=== PATIENT | female | born 1945 | race Caucasian/White ===

== ENCOUNTER 2019-08-13 07:46 | Outpatient (RCR) | payer MEDICARE, OTHER, SELFPAY | END 2019-08-31 00:01 | LOC: GILAB 07:46 | PROVIDERS: Family Provider Internal Medicine; Visit Provider Family Medicine | DX: D50.9 Iron deficiency anemia, unspecified (principal); K92.2 Gastrointestinal hemorrhage, unspecified | CPT/HCPCS: 96365 ×2; G0463 ×2; J1756 ×2 ==

== ENCOUNTER 2019-09-14 06:29 | Day surgery (SDC) | payer MEDICARE, OTHER, SELFPAY ==
[2019-09-13 15:58] VITALS: BMI 27.9
[2019-09-14 07:07] VITALS: BP 103/50; PULSE 70; RESP 16; TEMP 36.5; O2SAT 95
--- NOTE | 2019-09-14 07:21 | P.HPUD_ITS ---
H&P update H&P Update: DATE OF SURGERY/PROCEDURE: 09/14/19 DATE H&P PERFORMED: H&P UPDATE INFORMATION: H&P completed within last 30 days and No changes to prior documentation PREOP DIAGNOSIS: Anemia associated with blee ding per PLANNED PROCEDURE: Operation Date: 09/14/19 07:30 Proposed Procedures p EGD [id number], K21.9 Z85.038(Not Applicable) - Chencho Kramer MD s Flex Sigmoidoscopy(Not Applicable) - Chencho Kramer MD
--- NOTE | 2019-09-14 07:21 | PM.HPUD ---
H&P update H&P Update: DATE OF SURGERY/PROCEDURE: 09/14/19 DATE H&P PERFORMED: 08/26/19 H&P UPDATE INFORMATION: H&P completed within last 30 days and No changes to prior documentation PREOP DIAGNOSIS: Anemia associated with bleeding per PLANNED PROCEDURE: Operation Date: 09/14/19 07:30 Proposed Procedures p EGD [id number], K21.9 Z85.038(Not Applicable) - Chencho Kramer MD s Flex Sigmoidoscopy(Not Applicable) - Chencho Kramer MD
--- NOTE | 2019-09-14 07:27 | ANES.PREANES ---
Pre-Anesthetic Assessment Pre-Anesthetic Assessment: Height/Weight: Height 1.65 m Weight 76.204 kg Temp Pulse Resp BP Pulse Ox 97.7 F 70 16 103/50 95 09/14/19 07:07 09/14/19 07:07 09/14/19 07:07 09/14/19 07:07 09/14/19 07:07 Preop Diagnosis: Anemia associated with bleeding per Proposed Procedure: Operation Date: 09/14/19 07:30 Proposed Procedures p EGD [id number], K21.9 Z85.038(Not Applicable) - Chencho Kramer MD s Flex Sigmoidoscopy(Not Applicable) - Chencho Kramer MD Was Beta Randy taken within 24 hours: Yes Last intake: Intake Last Liquid Date 09/14/19 Last Liquid Time 04:30 Last Solid Date 09/12/19 Last Solid Time 19:00 Social: Social History: Tobacco Pack years: 55 Comment: quit 2016 Exam: Pre-Anes Outpt Exam: alert, oriented x 3, clear to auscultation bilaterally and regular rate & rhythm Additional Exam Findings (including area of procedure): systolic 3/6 lusb Liban following for moderate Airway: Submandibular: WNL Cervical ROM: WNL MP: 1 Dentition: Full Pulmonary: Pulmonary: COPD Comments: breathing feels good CV/HEM: CV/HEM: HTN Comments: rx'd 15 years : Comments: frequency, leakage GI: Comments: anemia, bleeding per rectum Metabolic: Metabolic: DM Comments: rx'd x 1.5 years, 130-150 Musc/skel: Musc/skel: Lower Back Pain Comments: s/p multiple back sx, bilateral radiculopathies Neuropsych: Neuropsych: Depression Anesthetic Plan: ASA status: III Anesthesia: MAC Data Anesthesia Cardiac Studies: No Data to Display
[2019-09-14 07:35] LABS: Glucose Point of Care 154 mg/dL (70-110)
[2019-09-14] MEDS: sodium chloride 0.9% 1,000 ML 30 ML IV (07:44)
[2019-09-14 08:28] VITALS: BP 116/45; PULSE 67; RESP 18; TEMP 36.1; O2SAT 99
[2019-09-14 09:08] VITALS: BP 115/52; PULSE 68; RESP 18; TEMP 36.3; O2SAT 94
--- NOTE | 2019-09-14 09:45 | SUR.PHASEII ---
PT ASSISTED TO BATHROOM AND BACK TO BED.PT WAS ABLE TO URINATE ONLY.POST OP PLAN RE EXPLAINED TO PT WHO VERBALIZED UNDERSTANDING.
--- NOTE | 2019-09-14 10:01 | SUR.OPER ---
endoscopic tattoo was injected by dr castaneda 1ml at 5 different locations, total injected 5ml. Lot# [id number], exp: 06/23/21
--- NOTE | 2019-09-14 14:43 | ANE.PACU ---
 Inpatient post-anesthesia follow up: Airway intact: Yes Vital signs: Temperature 97.4 F Pulse Rate [Left B rachial] 68 Respiratory Rate 18 Blood Pressure [Ri ght Arm] 115/52 Pulse Oximetry 94 Oxygen Delivery Me thod Room Air Oxygen Flow Rate 2 Fraction of Inspir ed Oxygen Hydration adequate: Yes Nausea and vomiting: No Mental status: Baseline
== END 2019-09-14 10:24 | disposition home or self-care (01) ==
PROVIDERS: Family Provider Internal Medicine; PCP Internal Medicine; Visit Provider Surgery
PROC: 0DJ08ZZ Inspection of Upper Intestinal Tract, Via Natural or Artificial Opening Endoscopic (ICD-10-PCS; CPT 43235; principal; 2019-09-14 07:30)
PROC: 0DJD8ZZ Inspection of Lower Intestinal Tract, Via Natural or Artificial Opening Endoscopic (ICD-10-PCS; CPT 45330; 2019-09-14 07:30)
DX: K62.5 Hemorrhage of anus and rectum (principal); Z85.038 Personal history of other malignant neoplasm of large intestine; Z90.49 Acquired absence of other specified parts of digestive tract; K63.3 Ulcer of intestine; G47.00 Insomnia, unspecified; M81.0 Age-related osteoporosis without current pathological fracture; I10 Essential (primary) hypertension; E11.40 Type 2 diabetes mellitus with diabetic neuropathy, unspecified; Z82.49 Family history of ischemic heart disease and other diseases of the circulatory system; Z87.891 Personal history of nicotine dependence; Z79.891 Long term (current) use of opiate analgesic; Z79.4 Long term (current) use of insulin
CPT/HCPCS: 43235; 45378; 12345; 36416; 82962; 88305; J2250; J2704; J7030

== ENCOUNTER 2019-09-27 10:14 | Outpatient (CLI) | payer MEDICARE, OTHER, SELFPAY ==
--- NOTE | 2019-09-27 11:00 | XRR_ITS ---
PROCEDURE INFORMATION: Exam: XR Abdomen, 1 View Exam date and time: 09/27/2019 10:47 AM Age: 74 years old Clinical indication: Abdominal pain; Generalized; Prior surgery; Surgery date: 1-6 months; Surgery type: Colon surgery jun 2019, abdominal pain ever since; Additional info: History of colon surgery TECHNIQUE: Imaging protocol: XR of the abdomen. Views: Frontal supine view of the abdomen. 1 View. COMPARISON: COMPARISON MORE: CT abdomen pelvis w con* [id number] 08/05/2019 7:54:44 PM FINDINGS: Gastrointestinal tract: There is mildly increased stool noted in the descending and proximal ascending colon. Intraperitoneal space: Right lower quadrant surgical clips. Organs: Left renal 3 mm lateral lower pole caliceal calculus redemonstrated. 3 mm calcification overlying the left renal medial upper pole was previously demonstrated to be a vascular calcification. Bones/joints: Bilateral thoracic and lumbar spinal pedicle screw and zak systems. RIGHT sliding screw hip prosthesis with partially imaged interlocking intramedullary zak. Bipolar left hip replacement. Left L3-L4 disc narrowing with rightward levoscoliosis. XR/XR KUB [id number] IMPRESSION: 1. Mild colonic constipation. 2. Left renal caliceal calculus.
== END 2019-09-27 10:15 | disposition home or self-care (01) ==
LOC: RAD 10:18
PROVIDERS: Family Provider Internal Medicine; PCP Internal Medicine; Visit Provider Surgery
DX: K59.00 Constipation, unspecified (principal); N20.0 Calculus of kidney; R10.9 Unspecified abdominal pain; Z98.890 Other specified postprocedural states
CPT/HCPCS: 74018

== ENCOUNTER 2019-10-14 12:54 | Outpatient (CLI) | payer MEDICARE, OTHER, SELFPAY ==
--- NOTE | 2019-10-14 13:30 | USCV_ITS ---
Pratima Beckford Age: 74 Gender: F : 1945 Exam Date: 10/14/2019 13:30 Ordering Phys: Gigi Louie MD ([email or web address]) Technologist: Kellen Oliveros Exam Location: [facility] [place] Indication: aortic stenosis BP: 109 / 42 HR: 75 Rhythm: Sinus Technical Quality: Adequate MEASUREMENTS (Male / Female) Normal Values 2D ECHO LV Diastolic Diameter PLAX 5.1 cm 4.2 - 5.9 / 3.9 - 5.3 cm LV Systolic Diameter PLAX 2.9 cm IVS Diastolic Thickness 1.5 cm 0.6 - 1.0 / 0.6 - 0.9 cm IVS Systolic Thickness 1.7 cm LVPW Diastolic Thickness 0.6 cm 0.6 - 1.0 / 0.6 - 0.9 cm LVPW Systolic Thickness 1.8 cm LVOT Diameter 2.0 cm LV Ejection Fraction 2D Teich 75.3 % LV Ejection Fraction MOD 2C 66.6 % LV Ejection Fraction 2C AL 66.2 % LA Diameter 3.8 cm LA Width 4.1 cm LA Height 5.8 cm RA Width 3.1 cm RA Height 4.7 cm M-MODE LV Diastolic Diameter MM 6.0 cm 4.2 - 5.9 / 3.9 - 5.3 cm LV Systolic Diameter MM 4.1 cm LV Ejection Fraction MM Teich 60.2 % IVS Diastolic Thickness MM 0.9 cm 0.6 - 1.0 / 0.6 - 0.9 cm IVS Systolic Thickness MM 1.8 cm LVPW Diastolic Thickness MM 1.3 cm 0.6 - 1.0 / 0.6 - 0.9 cm LVPW Systolic Thickness MM 2.0 cm Aortic Annulus Diameter 3.0 cm LA Ao Ratio MM 1.3 MV E Point Septal Separation 1.0 cm DOPPLER AV Peak Velocity 525.0 cm/s LVOT Peak Velocity 84.0 cm/s AV Area Cont Eq vti 0.5 cm squared AV Area Cont Eq pk 0.5 cm squared MV Peak Velocity 152.0 cm/s MV Area PHT 3.3 cm squared Mitral E to A Ratio 0.7 MV E' Velocity 4.0 cm/s Mitral E to MV E' Ratio 26.5 Mitral E to LV E' Lateral Ratio 27.2 Mitral E to LV E' Septal Ratio 26.5 TR Peak Velocity 74.0 cm/s TR Peak Gradient 2.2 mmHg Right Atrial Pressure 3.0 mmHg Pulmonary Artery Systolic Pressu 5.2 mmHg PV Peak Velocity 88.0 cm/s RV Acceleration Time 0.1 s FINDINGS Left Ventricle Normal left ventricular cavity size. Mild left ventricular hypertrophy. Normal left ventricular systolic function. No regional wall motion abnormalities. Grade I/IV diastolic dysfunction (abnormal relaxation filling pattern), normal to mildly elevated filling pressures. Left ventricular ejection fraction is estimated at 60 %. Right Ventricle Normal right ventricular size and systolic function. Normal right ventricular systolic pressure. Right Atrium The right atrium is normal in size. Left Atrium Mildly increased left atrial size. Mitral Valve Mild mitral annular calcification. Mild mitral valve regurgitation. Aortic Valve Structurally normal trileaflet aortic valve. Severe aortic valve calcification. Severe aortic valve stenosis, mean gradient 61 mmHg, MORTEZA 0.49 cm squared. Tricuspid Valve Structurally normal tricuspid valve. Trace tricuspid valve regurgitation. Pulmonic Valve Pulmonic valve not well visualized. Pericardium Normal pericardium without effusion. Aorta Normal ascending aorta dimension. CONCLUSIONS Normal left ventricular cavity size. Mild left ventricular hypertrophy. Normal left ventricular systolic function. No regional wall motion abnormalities. Grade I/IV diastolic dysfunction (abnormal relaxation filling pattern), normal to mildly elevated filling pressures. Left ventricular ejection fraction is estimated at 60 %. Mildly increased left atrial size. Mild mitral annular calcification. Mild mitral valve regurgitation. Structurally normal trileaflet aortic valve. Severe aortic valve calcification. Severe aortic valve stenosis, mean gradient 61 mmHg, MORTEZA 0.49 cm squared. Previous study was done 2 months ago but under less than optimal circumstances due to the patient's illness at that time. This study was done to confirm or deny the severity of the aortic valve stenosis. This study confirms the previous study. Previously the mean gradient was 55 mmHg with a valve area of 0.[address] Gigi Louie MD (Electronically Signed) Final Date: 14 October 2019 17:07 S
== END 2019-10-14 12:55 | disposition home or self-care (01) ==
LOC: US 12:55
PROVIDERS: Family Provider Internal Medicine; PCP Internal Medicine; Visit Provider Internal Medicine Cardiovascular Disease
DX: I35.0 Nonrheumatic aortic (valve) stenosis (principal); I34.0 Nonrheumatic mitral (valve) insufficiency; I70.0 Atherosclerosis of aorta
CPT/HCPCS: 93306

== ENCOUNTER 2019-10-17 09:42 | Emergency (ER) | payer MEDICARE, OTHER, SELFPAY ==
[2019-10-17 09:43] VITALS: BP 115/56; PULSE 88; RESP 20; TEMP 37; O2SAT 96; BMI 24.3
--- NOTE | 2019-10-17 09:49 | ED_ITS ---
Entered by Ariana Austin, acting as scribe for HPI - SOB/Dyspnea General: Chief Complaint: Shortness of Breath/Dyspnea Stated Complaint: SOB Time Seen by Provider: 10/17/19 09:47 Source: EMS Mode of arrival: EMS Limitations: no limitations History of Present Illness: HPI Narrative: 74 yo female presents with increased shortness of breath. pt states this started a few days ago. pt states she has had a cough that was dry then turned to productive. pt states she is not on home O2. pt denies any other symptoms at this time. MD elicited complaint: shortness of breath and cough Pertinent past history: COPD Onset (ago): day(s) (2-3 days ago) Timing: constant and progressively worsening Severity: mild Exacerbating factors: coughing and deep breaths Relieving factors: nothing Known history of: COPD Associated symptoms: Reports cough; Deny abdominal pain, chest pain, fever(s), nausea or vomiting Treatment prior to arrival: oxygen (by EMS) Related Data: Home oxygen amount: none Review of Systems General: Reports: 10 or more systems reviewed and unremarkable except in HPI and below Const: Denies: fever, chills, body aches or change in appetite Eyes: Denies: blurry vision or eye discomfort ENMT: Denies: throat pain or dental pain Card: Denies: chest pain Resp: Reports: shortness of breath and productive cough GI: Denies: abdominal pain, nausea, vomiting or diarrhea : Denies: painful urination Musc: Denies: neck pain or back pain Skin/Breast: Denies: rash Neuro: Denies: headache Psych: Denies: depression Sudeep/Lymph: Denies: easy bruising All/Imm: Denies: hives PFSH ED PFSH: Social History Smoking and tobacco status: former smoker Second hand smoke exposure: No Alcohol intake: never Adopted: No Caregiver/support person: Yes Lives independently: No Household members: none Housing: Assisted Living Facility Marital status: / Highest education level completed: High School Graduate service: No Current occupational status: disabled Current occupational exposures/hazards: No Pets and animals: No History of recent travel: No Sexually active: No Current gender identity: Female Unique/Hindu: Shinto Special unique needs: No Agree to transfusion: No Financial difficulty paying for basics: Decline to Answer Physical Exam Const: COMMON NORMALS: no apparent distress, oriented x3 and healthy appearing HENMT: COMMON NORMALS: normocephalic and head/scalp atraumatic HEAD & SCALP: normocephalic and atraumatic Eye: COMMON NORMALS: PERRL and EOMs intact bilaterally PUPIL: Yes PERRL Neck/C-Spine: COMMON NORMALS: full ROM and supple Chest: COMMONS NORMALS: inspection of chest normal and palpation of chest normal Resp: COMMON NORMALS: normal respiratory effort EFFORT & INSPECTION: Yes tachypneic AUSCULTATION: wheezes Cardio: COMMON NORMALS: regular rate, regular rhythm and no murmurs RATE: regular rate RHYTHM: regular rhythm GI: COMMON NORMALS: normal to inspection, nondistended, normoactive bowel sounds, soft to palpation, non-tender and no masses PALPATION: Yes soft Extremity: COMMON NORMALS: normal to inspection and full ROM Neuro: COMMON NORMALS: oriented x3, moves all extremities and no focal motor deficits Psych: COMMON NORMALS: mental status grossly normal, thought process normal and cooperative THOUGHT PROCESS: normal thought process Skin: COMMON NORMALS: no rashes or lesions noted and no wounds GENERAL SKIN EXAM: no rashes or lesions noted Course Vital Signs: Vital signs: Vital Signs Temperature 98.6 F 10/17/19 09:43 Pulse Rate 89 10/17/19 11:16 Respiratory Rate 16 10/17/19 11:16 Blood Pressure 110/48 10/17/19 11:16 Pulse Oximetry 94 10/17/19 11:16 MDM - SOB/Dyspnea MDM Narrative: Medical decision making narrative: Patient presents here with bronchitis. Patient is much improved here after breathing treatments and she is requesting to go home. She is not requiring any oxygen here and has no signs of cardiac cause or pulmonary embolism. Patient's x-ray shows no large pneumonias. We will start her on steroids along with albuterol and Keflex. Patient is to follow-up with her primary care doctor in 3 to 5 days return if worsening. Lab Data: Labs: Lab Results 10/17/19 10/17/19 10/17/19 Range/Units 09:58 10:10 10:10 WBC 3.3 L (4.0-10.0) 10^3/ uL RBC 4.19 (4.1-5.3) 10^6/u L Hgb 10.6 L (11.5-15.3) g/dL Hct 35.6 L (37.0-47.0) % MCV 85.0 (81-99) fL MCH 25.3 L (28.0-34.0) pg MCHC 29.8 L (30.0-36.0) g/dL RDW 16.6 H (12.1-15.1) % Plt Count 210 (130-400) 10^3/c mm MPV 11.0 H (7.4-10.4) fL Neut % (Auto) 69.8 % Lymph % (Auto) 17.2 % [place] % (Auto) 11.8 % Eos % (Auto) 0.6 % Baso % (Auto) 0.3 % Neut # (Auto) 2.3 (1.8-7.7) 10^3/u L Lymph # (Auto) 0.6 L (0.8-4.8) 10^3/u L [place] # (Auto) 0.4 (0.2-0.9) 10^3/u L Eos # (Auto) 0.0 (0.0-0.8) 10^3/u L Baso # (Auto) 0.0 (0.0-0.1) 10^3/u L Nucleated RBC % (a uto) 0 % Nucleated RBCs # 0.0 /100WBC Sodium 138 (136-145) mmol/L Potassium 3.8 (3.5-5.1) mmol/L Chloride 101 (98-107) mmol/L Carbon Dioxide 25 (22-29) mmol/L Anion Gap 15.8 (5-19) BUN 16 (8-23) mg/dL Creatinine 0.7 (0.5-0.9) mg/dL Glucose 156 H (65-115) mg/dL Lactate (0.5-2.2) mmol/L Calcium 9.1 (8.5-10.5) mg/dL Total Bilirubin 0.3 (0.15-1.2) mg/dL AST 17 (0-32) U/L ALT 10 (0-33) U/L Alkaline Phosphata se 96 (35-105) IU/L NT-Pro-B Natriuret Pep 2117 H (0-125) pg/mL Total Protein 6.9 (6.6-8.7) g/dL Albumin 3.7 (3.5-5.2) g/dL Globulin 3.2 (1.3-4.6) g/dL Influenza Type A A g Negative (Negative) POC Influenza B Ag Negative (Negative) 10/17/19 Range/Units 10:10 WBC (4.0-10.0) 10^3/ uL RBC (4.1-5.3) 10^6/u L Hgb (11.5-15.3) g/dL Hct (37.0-47.0) % MCV (81-99) fL MCH (28.0-34.0) pg MCHC (30.0-36.0) g/dL RDW (12.1-15.1) % Plt Count (130-400) 10^3/c mm MPV (7.4-10.4) fL Neut % (Auto) % Lymph % (Auto) % [place] % (Auto) % Eos % (Auto) % Baso % (Auto) % Neut # (Auto) (1.8-7.7) 10^3/u L Lymph # (Auto) (0.8-4.8) 10^3/u L [place] # (Auto) (0.2-0.9) 10^3/u L Eos # (Auto) (0.0-0.8) 10^3/u L Baso # (Auto) (0.0-0.1) 10^3/u L Nucleated RBC % (a uto) % Nucleated RBCs # /100WBC Sodium (136-145) mmol/L Potassium (3.5-5.1) mmol/L Chloride (98-107) mmol/L Carbon Dioxide (22-29) mmol/L Anion Gap (5-19) BUN (8-23) mg/dL Creatinine (0.5-0.9) mg/dL Glucose (65-115) mg/dL Lactate 0.9 (0.5-2.2) mmol/L Calcium (8.5-10.5) mg/dL Total Bilirubin (0.15-1.2) mg/dL AST (0-32) U/L ALT (0-33) U/L Alkaline Phosphata se (35-105) IU/L NT-Pro-B Natriuret Pep (0-125) pg/mL Total Protein (6.6-8.7) g/dL Albumin (3.5-5.2) g/dL Globulin (1.3-4.6) g/dL Influenza Type A A g (Negative) POC Influenza B Ag (Negative) Imaging Data^: CXR: Radiologist's impression: Ordering Provider/Ordering MD: Phoenix Valladares MD Date of Service: 10/17/19 Procedure(s): XR chest 1V portable [id number] Accession Number(s): [id number] Report Number: [id number] WS: [id number] XR chest 1V portable [id number] REASON FOR EXAM: cough FINDINGS: Mcconnell bars are seen extending from the mid thoracic area inferiorly. The heart was not enlarged there is arteriosclerotic changes. There is thickening of the peribronchial markings bilaterally suggesting possible bronchitis. No pneumonia, pleural effusion, pulmonary edema, or mass effect. XR/XR chest 1V portable [id number] IMPRESSION: Findings suggesting acute bronchitis. EKG Data^: EKG 1: Attestation: I personally reviewed and interpreted this EKG as follows: EKG Interpretation Date: 10/17/19 EKG interpretation time: 10:10 Interpretation: nsr hr [address] or t wave abnormalities qrs 98 qtc 438 Discharge Plan Discharge Patient Disposition: Home, Self-Care Clinical Impression: Bronchitis Condition: Stable Prescriptions: New Keflex 500 mg capsule 500 mg PO Q6H 7 Days Qty: 28 RF: 0 prednisone 50 mg tablet 50 mg PO DAILY Qty: 5 RF: 0 albuterol sulfate 90 mcg/actuation HFA aerosol inhaler 2 inh INHALATION Q6H PRN (Reason: shortness of breath) Qty: 8 RF: 0 No Action albuterol sulfate 90 mcg/actuation HFA aerosol inhaler 2 puff INHALATION Q6H PRNRF: 0 pantoprazole 40 mg tablet,delayed release (DR/EC) 40 mg PO QDAY RF: 0 Farxiga 5 mg tablet 5 mg PO QAM RF: 0 glipizide 5 mg tablet 2.5 mg PO QDAY RF: 0 tamsulosin [Flomax] 0.4 mg capsule 0.4 mg PO QDAY RF: 0 Basaglar KwikPen U-100 Insulin 100 unit/mL (3 mL) insulin pen 18 unit SUBCUT .HS RF: 0 Crestor 20 mg 20 mg PO DAILY RF: 0 multivitamin 1 tab PO DAILY RF: 0 citalopram 20 mg tablet 20 mg PO DAILY RF: 0 Zofran 4 mg Tablet 4 mg PO Q6H PRN (Reason: Nausea) RF: 0 bisacodyl 5 mg Tablet 5 mg PO DAILY RF: 0 oxycodone 5 mg tablet 5 mg PO 6XD PRN (Reason: pain) RF: 0 cyclobenzaprine 5 mg tablet 5 mg PO DAILY RF: 0 Stiolto Respimat 2.5-2.5 mcg/actuation mist 1 inh INHALATION DAILY RF: 0 potassium chloride 20 mEq tablet,ER particles/crystals 20 meq PO DAILY RF: 0 Senna-S 8.6 mg 8.6 mg PO DAILY RF: 0 furosemide 20 mg tablet 20 mg PO DAILY RF: 0 Novolog Flexpen U-100 Insulin 100 unit/mL (3 mL) insulin pen 100 unit SUBCUT QID RF: 0 metoprolol tartrate 25 mg tablet 25 mg PO BID RF: 0 Lantus U-100 Insulin liquid 6 unit SUBCUT TID RF: 0 Discharge Orders: Discharge Order (Routine); Ordered 10/17/19 Ordered By: Phoenix Valladares Referrals: Ziyad Esparza DO [Primary Care Provider] - 4-7 days Discharge Diet: Advance as tolerated Discharge Activity: Resume usual activity Patient Instructions: Acute Bronchitis (ED) Coding Level of Care Code ED Coal Trammer for [facility] Fwd Exam Comprehensive The documentation recorded by the Norman jensen Bridget Annette, accurately reflects the service I personally performed and the decisions made by Blaine austin Korby, MD Oct 17, 2019 09:42
--- NOTE | 2019-10-17 09:53 | XR_ITS ---
WS: [id number] XR chest 1V portable [id number] REASON FOR EXAM: cough FINDINGS: Mcconnell bars are seen extending from the mid thoracic area inferiorly. The heart was not enlarged there is arteriosclerotic changes. There is thickening of the peribronchial markings bilaterally suggesting possible bronchitis. No pneu monia, pleural effusion, pulmonary edema, or mass effect. XR/XR chest 1V portable [id number] IMPRESSION: Findings suggesting acute bronchitis.
--- NOTE | 2019-10-17 09:53 | ECG_ITS ---
Measurements Intervals Rawlings Rate: 84 P: 59 AR: 171 QRS: 33 QRSD: 98 T: 120 QT: 397 QTc: 470 SINUS RHYTHM WITH OCCASIONAL SUPRAVENTRICULAR PREMATURE COMPLEXES ST DEVIATION AND MODERATE T-WAVE ABNORMALITY, CONSIDER LATERAL ISCHEMIA [-0.1+ mV mV T WAVE IN I/aVL/V5/V6] Left ventricular hypertrophy Compared to ECG 08/08/2019 13:13:18 T-wave abnormality now present Possible ischemia now present ST (T wave) deviation no longer present Electronically Signed On 10-18-2019 11:15:09 ELECTRICAL INSTALLATION INSPECTOR by Gigi Louie M.D. [email or web address]
[2019-10-17 09:59] VITALS: RESP 18; O2SAT 92
[2019-10-17 10:15] VITALS: PULSE 82; RESP 91; O2SAT 16
[2019-10-17 10:21] VITALS: PULSE 79; RESP 16; O2SAT 93
[2019-10-17 10:24] LABS: Basophils % 0.3 %; Eosinophils % 0.6 %; Hematocrit 35.6 % (37.0-47.0); Hemoglobin 10.6 g/dL (11.5-15.3); Lymphocytes # 0.6 10^3/uL (0.8-4.8); Lymphocytes % 17.2 %; Mean Corpuscular HGB Conc 29.8 g/dL (30.0-36.0); Mean Corpuscular Hemoglobin 25.3 pg (28.0-34.0); Monocytes # 0.4 10^3/uL (0.2-0.9); Monocytes % 11.8 %; Neutrophils # 2.3 10^3/uL (1.8-7.7); Neutrophils % 69.8 %; Nucleated Red Blood Cells % 0 %; Platelet Count 210 10^3/cmm (130-400); Red Blood Count 4.19 10^6/uL (4.1-5.3); Red Cell Distribution Width 16.6 % (12.1-15.1); White Blood Count 3.3 10^3/uL (4.0-10.0)
[2019-10-17 10:41] LABS: Lactate (Lactic Acid level) 0.9 mmol/L (0.5-2.2)
[2019-10-17 10:45] LABS: Influenza A by IFA Negative (Negative); Influenza B by IFA Negative (Negative)
[2019-10-17 10:50] LABS: Alanine Aminotransferase 10 U/L (0-33); Albumin Level 3.7 g/dL (3.5-5.2); Alkaline Phosphatase 96 IU/L (35-105); Anion Gap 15.8 (5-19); Aspartate Amino Transferase 17 U/L (0-32); Blood Urea Nitrogen 16 mg/dL (8-23); Calcium 9.1 mg/dL (8.5-10.5); Carbon Dioxide 25 mmol/L (22-29); Chloride 101 mmol/L (98-107); Globulin 3.2 g/dL (1.3-4.6); Glucose 156 mg/dL (65-115); NT Pro B Type Natriuretic Pept 2117 pg/mL (0-125); Potassium 3.8 mmol/L (3.5-5.1); Sodium 138 mmol/L (136-145); Total Bilirubin 0.3 mg/dL (0.15-1.2); Total Protein 6.9 g/dL (6.6-8.7)
[2019-10-17 11:16] VITALS: BP 110/48; PULSE 89; RESP 16; O2SAT 94
[2019-10-17 11:44] VITALS: BP 110/48; PULSE 85; RESP 17; O2SAT 96
== END 2019-10-17 12:21 | disposition home or self-care (01) ==
PROVIDERS: Emergency Provider Emergency Medicine; Family Provider Internal Medicine; PCP Internal Medicine
DX: J44.9 Chronic obstructive pulmonary disease, unspecified (principal); Z87.891 Personal history of nicotine dependence
CPT/HCPCS: 36415; 71045; 80053; 83605; 83880; 85025; 87804; 93005; 94640; 99283; 99284; J7611

== ENCOUNTER 2019-11-10 08:02 | Observation (INO) | payer MEDICARE, OTHER, SELFPAY ==
[2019-11-10] VITALS (43 sets, daily range): BP systolic 93–154; BP diastolic 46–89; PULSE 73–87; RESP 10–27; TEMP 36.6; O2SAT 93–94; BMI 27.6
--- NOTE | 2019-11-10 06:26 | XACV_ITS ---
Ht: 163 cm Wt: 73 kg BSA: 1.83 m2 Gender: Female : 1945 Any Known Allergies: Other Exam Priority: Routine Procedure(s): Procedure Description: Diagnostic procedure Procedure Description: Coronary Angiography Diagnostic Cath Status: Elective Diagnostic Findings Patient has severe aortic stenosis. Angiography is being performed to assess the coronary arteries in anticipation of a TAVR. Patient has a right dominant system. The coronary arteries are completely normal. Anticoagulation: Heparin Pressures Phase:Rest AO : 101 mmHg / 54 mmHg ( 73 mmHg ) @ 2:48:00 AM 96 mmHg / 54 mmHg ( 71 mmHg ) @ 2:49:00 AM Clinical Evaluation EBL: 5mL-10mL Procedural Details Procedure Consent Obtained. Pre-Procedure Time Out. Identified patient by full name and date of as verbalized by the patient/guarantor. Does the consent match the physician's order: Yes. Accurate & Complete Informed Consent: Yes. Inpatient/Outpatient History & Physical on Chart: Yes. If H&P is completed, is and addenduem needed: N/A; If yes, is the addendum complete: N/A. Visualize and Verify Site with Patient/Guarantor: N/A. Relevant Radiology Images available: Yes. Pre-op teaching completed and patient verbalized understanding. The risks, benefits, and alternatives of sedation and/or procedure were discussed by physician. The patient agrees to continue. Procedure started. Correct patient, site and procedure confirmed by cath team. PERRLA. Strong, equal hand marina dry dock manager bilaterally. Lungs clear x 5 lobes. IV Site on Arrival: 22 gauge in the right hand. IV Fluids: 0.9% NaCl at KVO. 0 mL infused prior to lab pack chemist. Pre Procedural Pulses: bilateral dorsalis pedis was 2+. Pre Procedural Pulses: bilateral posterior tibial was 2+. Pre Procedural Pulses: bilateral radial was 3+. Oxygen started at 2liters/min via nasal canula. right groin was prepped with chloroprep then draped in the usual sterile fashion. right radial was prepped with chloroprep then draped in the usual sterile fashion. Physician notified. Baseline sample Acquired. HR: 79 BPM. Equipment: 6F - Radial. Physician arrived. Cardiac Cath Pack. ACIST Manifold Kit Model BT 2000. Heparinized Saline (2 units/mL), 1000 mL bag. Physician scrubbed in. Immediate Pre-Procedure Time Out. Correct Patient: Yes; Correct Procedure: Yes; Correct Site: Yes; Correct Patient Position: Yes; Correct Supplies: Yes; Dried Flammable Prep: Yes; Blood Products Available: No;. Lidocaine 1% infiltrated to the right radial. Arterial access obtained. A 6 faroese TIG catheter in over wire. Multiple views taken of left coronary artery. Catheter redirected to the RCA. Multiple views taken of right coronary artery. Catheter out. A TR Band was successful obtaining hemostatsis at the Right Radial artery insertion site. TR band placed. Hemostasis obtained. PERRLA. Strong, equal hand marina dry dock manager bilaterally. No VTE prophylaxis required. Fluoro: 2:06. Contrast type used: Omnipaque 300 mgI/mL, 500 mL bottle. [id number]. Post-op diagnosis: aortic stenosis. Complications: none. Estimated blood loss: 5mL-10mL. Procedure completed. Patient transferred by wheelchair to CPRU. [facility] Clinical Fraility Score: 4: Vulnerable. Clinical Data Assistant Indications: Valvular Disease. Chest Pain Symptom Assessment: Atypical Angina. Cardiovascular Instability: No. Vital chart was stopped. Medication's Wasted: Other = fenanyl 50 mcg. Medication's Wasted: Lidocaine 1% = 18 mL. Medication's Wasted: Nitro = 49.8 mg. Medication's Wasted: Heparin = 1000 units. Total IV fluids: 50 mL. Site: Right Radial artery Sheath Size: 6 Fr Hemostasis Method: TR Band Hemostasis Success: Successful Procedure Medications Start: 7:34 AM Stop: 7:34 AM Medication: Versed Amount: 1 mg Route: I.V. Start: 7:35 AM Stop: 7:35 AM Medication: Fentanyl Amount: 25 mcg Route: I.V. Start: 7:39 AM Stop: 7:39 AM Medication: Versed Amount: 1 mg Route: I.V. Start: 7:41 AM Stop: 7:41 AM Medication: Verapamil Amount: 5 mg Route: I.A. Start: 7:41 AM Stop: 7:41 AM Medication: Nitrogylcerin Amount: 200 mcg Route: I.A. Start: 7:45 AM Stop: 7:45 AM Medication: Heparin Amount: 5000 units Route: I.V. Start: 7:47 AM Stop: 7:47 AM Medication: Fentanyl Amount: 25 mcg Route: I.V. I, the attending physician, have reviewed and verified all procedure medications. Yes, all medications given per verbal order History/Risk Factors Hypertension: Yes Dyslipidemia: Yes Diabetic Therapy: Oral Peripheral Arterial Disease (PAD): No Myocardial Infarction (UT): No Obesity: Yes Renal Disease: No Tobacco Use: Former Prior Interventions PCI: No CABG: No Valve Surgery: No Report Signatures Finalized by:Dr. Gigi Louie MD on 11/10/2019 8:06:25 AM
--- NOTE | 2019-11-10 06:30 | SUR.PREOP ---
PRE OP NOTE Patient states that she was under the impression her heart valve was being replaced today. Informed that the planned procedure today was a heart cath. Patient states that was not what she was told by Dr Louie. I informed her that Dr Louie would come clarify today prior to doing any procedure. She stated that would be fine. Prepped per usual fashion.
[2019-11-10] MEDS: diphenhydrAMINE 50 mg Capsule PO (07:01)
--- NOTE | 2019-11-10 07:05 | SUR.PREOP ---
MD Discussion Dr Louie in to discuss/clarify today's procedure. After discussion patient opted to continue. No c/o voiced at this time.
--- NOTE | 2019-11-10 08:41 | PC.NURSE ---
received from cardiac dental lab technician at 0815.report received.pt is alert and awake.denies pain.sr on monitor.right wrist with tr band on and inflated.no hematoma noted.palpable radial pulse noted distal to tr band.instructed in activity restrictions s/p radial artery procedure..and instructed to notify staff for any bleeding,pain,numbness..or for any concerns at all.pt verb understanding of instructions
--- NOTE | 2019-11-10 10:32 | PC.CHAP ---
Pastoral Care Encounter/Spiritual Assessment Type of Contact [] Declined perioperative assistant visit [] Patient/Family/Request visit [] Outpatient visit [] Follow-up visit [] Physician referral [] Code/Alert [x] Routine visit [] Staff referral [] Actively dying [] Patient sleeping [] Family support [] [] Out of room [] Palliative care [] [] Receiving care in room [] Pre-surgical visit [] Trauma [] Long length of stay [] ICU visit [] Other: Relational/Emotional Strength [] Patient feels connected with others/family/visitors/staff [] Distress [] Loneliness/isolation [] Abandonment Spirituality of Patient [] Person of Unique [] Attends Quaker of their Unique [x] Believes in Prayer [] Reads Bible or Restoration materials [] There are Spiritual issues to be addressed Fabrication Specialist Interventions [x] Prayer [] Active listening [] Non-anxious presence [] Spiritual/emotional support [] Crisis/trauma care [] Spiritual counseling [] Bereavement support [] Provided bereavement packet [] Provided Bible/devotional materials [] Provided toy/stuffed animal, coloring book to patient or family member [] Provided Communion [] Anointing/[place] [] Salvation [x] Completed spiritual assessment [] Other: Impact on Illness or Injury [] Angry [] Fearful [] Anxious [] Often cries [] Exhaustion [] Unable to work [] Unable to attend mormon [] Unable to walk/stand [] Unable to read [] Unable to drive [] Unable to eat/drink [] Unable to sleep [] Unable to be with family [] Patient intubated [] Other: Summary Patient here for testing. Time spent with patient 10 min
--- NOTE | 2019-11-10 14:17 | PC.NURSE ---
tr band slowly deflated and removed at 1300.no bleeding or hematoma noted.palpable radial pulse noted.right hand is warm to toucha nad with brisk capillary refill.site dressed with 2x2 guaze and secured with bioclusive drsg
== END 2019-11-10 14:30 | disposition home or self-care (01) ==
LOC: CSU 10:18 → CCL 10:19 → OPCSU 10:20 → CSU 10:25
PROVIDERS: Admitting Provider Internal Medicine Cardiovascular Disease; Family Provider Internal Medicine; PCP Internal Medicine; Visit Provider Internal Medicine Cardiovascular Disease
DX: I35.0 Nonrheumatic aortic (valve) stenosis (principal)
CPT/HCPCS: 36415; 93454; C1769; C1887; C1894; G0378; J1644; J2001; J2250; J3010; J3490; J7030; Q0163; Q9967

== ENCOUNTER 2019-12-13 07:02 | Inpatient (IN) | payer MEDICARE, OTHER, SELFPAY ==
[2019-12-13] VITALS (16 sets, daily range): BP systolic 101–169; BP diastolic 51–92; PULSE 77–130; RESP 16–25; TEMP 36.6–37; O2SAT 96–100; BMI 25.8
--- NOTE | 2019-12-13 07:05 | ED_ITS ---
HPI - SOB/Dyspnea General: Chief Complaint: Shortness of Breath/Dyspnea Stated Complaint: difficulty breathing Time Seen by Provider: 12/13/19 07:05 History of Present Illness: HPI Narrative: 74-year-old female with a known history of severe COPD as well as congestive heart failure and valvular heart disease diabetes mellitus. She is brought in from a local halfway in respiratory distress her sats are 100% on arrival on couple liters oxygen by nasal cannula there is no report of fever she has had a nonproductive cough. She is awake and alert and able to answer questions she denies myalgias or flulike symptoms. The halfway she is and has been on visitor restrictions for some time now and has not had any reported COVID 19 cases. She denies any chest pain. MD elicited complaint: shortness of breath and cough (Nonproductive) Pertinent past history: COPD, congestive heart failure and diabetes Onset (ago): hour(s) Timing: constant Severity: severe Exacerbating factors: movement and coughing Relieving factors: oxygen and rest Known history of: COPD and congestive heart failure Associated symptoms: Reports no associated symptoms and orthopnea; Deny abdominal pain, chest pain, fever(s), nausea or vomiting Treatment prior to arrival: oxygen Review of Systems Const: Denies: fever, chills, body aches, change in appetite, fatigue or malaise ENMT: Denies: throat pain, ear pain, nasal discharge or nasal congestion Card: Reports: shortness of breath on exertion and shortness of breath when lying down; Denies: chest pain or edema Resp: Reports: shortness of breath and non-productive cough; Denies: productive cough GI: Denies: abdominal pain, nausea, vomiting, vomiting blood, coffee grounds in vomit, diarrhea, constipation, bloating, blood in stool or black tarry stool : Denies: flank pain, difficulty urinating, painful urination, urinary frequency or urinary urgency Skin/Breast: Denies: rash or itching PFSH ED PFSH: Medical History (Updated 12/13/19 @ 13:14 by Eleazar Duenas MD) Adenocarcinoma COLON Anemia Aortic stenosis Arthritis Carcinoma of sigmoid colon Centrilobular emphysema DDD (degenerative disc disease) Diabetes Dyslipidemia Fracture of femur Fracture of fibula (~09/2019) HTN (hypertension) Tobacco abuse, in remission Surgical History History of colon resection History of colonoscopy with polypectomy Family History Denies family history of Anesthesia complication Bleeding disorder Social History Smoking and tobacco status: never smoked Second hand smoke exposure: No Alcohol intake: never Adopted: No Caregiver/support person: Yes Lives independently: No Household members: none Housing: Assisted Living Facility Marital status: / Highest education level completed: High School Graduate service: No Current occupational status: disabled Current occupational exposures/hazards: No Pets and animals: No History of recent travel: No Sexually active: No Current gender identity: Female Unique/Christian: [employer] Special unique needs: No Agree to transfusion: No Financial difficulty paying for basics: Decline to Answer Physical Exam Const: COMMON NORMALS: no apparent distress GENERAL APPEARANCE: cooperative and comfortable ORIENTATION/CONSCIOUSNESS: Yes awake, Yes oriented to person, Yes oriented to place and Yes oriented to time HENMT: COMMON NORMALS: normocephalic, head/scalp atraumatic, hearing grossly normal bilaterally, external ears normal, EAC's normal, TM's normal bilaterally, nasal mucous membranes and turbinates normal, moist oral mucous membranes and oropharynx normal HEAD & SCALP: normocephalic and atraumatic NOSE: nasal mucous membranes and turbinates normal EXTERNAL EAR: Yes external ears normal EXTERNAL AUDITORY CANAL: EAC's normal TYMPANIC MEMBRANE: TM's normal bilaterally Eye: COMMON NORMALS: PERRL, EOMs intact bilaterally, conjunctivae normal and no scleral icterus CONJUNCTIVA: Yes conjunctivae normal PUPIL: Yes PERRL Neck/C-Spine: COMMON NORMALS: full ROM, no lymphadenopathy and supple Lymph: LYMPHATIC: no lymphadenopathy noted and no lymphedema noted Resp: EFFORT & INSPECTION: Yes respiratory distress, Yes labored and Yes uses accessory muscles AUSCULTATION: rhonchi and wheezes Cardio: RATE: tachycardic HEART SOUNDS: murmur systolic Location: right sternal border Intensity: V/ Timing: late GI: COMMON NORMALS: soft to palpation and no hepatosplenomegaly AUSC ULTATION: Yes normoactive bowel sounds PALPATION: Yes soft, No tender, No guarding and Yes no hepatosplenomegaly Extremity: COMMON NORMALS: normal to inspection, normal capillary refill, no clubbing, cyanosis or edema, no calf tenderness and no pedal edema Neuro: SENSORIUM/ORIENTATION: Yes oriented to person, Yes oriented to place and Yes oriented to time Skin: COMMON NORMALS: no rashes or lesions noted GENERAL SKIN EXAM: no rashes or lesions noted Course Vital Signs: Vital signs: Vital Signs Temperature 98.2 F 12/14/19 12:00 Pulse Rate 85 12/14/19 12:00 Respiratory Rate 19 H 12/14/19 12:00 Blood Pressure 109/55 12/14/19 12:00 Pulse Oximetry 100 12/14/19 12:00 MDM - SOB/Dyspnea MDM Narrative: Medical decision making narrative: Patient in acute hypercapnic respiratory failure. We will start her on BiPAP. She has been isolated in the halfway there are no cases of COVID-19 in the halfway. She can safely be BiPAP and nebulized. Will discuss with Dr. Duenas with plan to admit. Lab Data: Labs: Lab Results 12/13/19 12/13/19 12/13/19 Range/Units 07:00 07:14 07:15 WBC 10.7 H (4.0-10.0) 10^3/ uL RBC 4.25 (4.1-5.3) 10^6/u L Hgb 9.6 L (11.5-15.3) g/dL Hct 35.6 L (37.0-47.0) % MCV 83.8 (81-99) fL MCH 22.6 L (28.0-34.0) pg MCHC 27.0 L (30.0-36.0) g/dL RDW 16.5 H (12.1-15.1) % Plt Count 445 H (130-400) 10^3/c mm MPV 11.7 H (7.4-10.4) fL Neut % (Auto) 54.8 % Lymph % (Auto) 30.6 % [place] % (Auto) 10.7 % Eos % (Auto) 2.8 % Baso % (Auto) 0.8 % Neut # (Auto) 5.9 (1.8-7.7) 10^3/u L Lymph # (Auto) 3.3 (0.8-4.8) 10^3/u L [place] # (Auto) 1.2 H (0.2-0.9) 10^3/u L Eos # (Auto) 0.3 (0.0-0.8) 10^3/u L Baso # (Auto) 0.1 (0.0-0.1) 10^3/u L Nucleated RBC % (a uto) 0 % Nucleated RBCs # 0.0 /100WBC D-Dimer (0-0.59) ug/mIFE U Specimen Type Arterial Sample Site Radial, left ABG pH 7.21 L (7.35-7.45) ABG pCO2 72.8 H* (35-45) mmHg ABG pO2 81.6 (80.0-100.0) mmH g ABG HCO3 29.3 H (22-26) mmol/L ABG O2 Saturation 92.1 ABG Base Excess 0.6 (-2.0-2.0) mmol/ L Ron Test Pos A-a O2 Gradient (5-10) mmHg Hematocrit 28.4 L (37-47) % Hgb O2 Saturation 90.8 L (95-100) % Carboxyhemoglobin 0.9 (0.4-20.1) %THgb Methemoglobin 0.6 (0.4-1.5) % Total Hemoglobin 9.3 L (12-16) g/dL Sodium 142.0 (131-143) mmol/L Potassium 4.1 (3.5-5.0) mmol/L Glucose 245.0 H (70-115) mg/dL Ionized Calcium 1.2 (1.1-1.4) mmol/L O2 Delivery Device Nc O2 Liters/Min 5.0 % FiO2 % [place] [id number] Chloride (98-107) mmol/L Carbon Dioxide (22-29) mmol/L Anion Gap (5-19) BUN (8-23) mg/dL Creatinine (0.5-0.9) mg/dL Calculated Osmolal ity (285-295) mOsm/k g Lactic Acid (0.5-2.2) mmol/L Calcium (8.5-10.5) mg/dL Ferritin (15-150) ng/mL Total Bilirubin (0.15-1.2) mg/dL AST (0-32) U/L ALT (0-33) U/L Alkaline Phosphata se (35-105) IU/L Lactate Dehydrogen ase (135-214) U/L Troponin T Baselin e (0-10) ng/mL C-Reactive Protein (0.0-4.9) mg/L NT-Pro-B Natriuret Pep (0-125) pg/mL Total Protein (6.6-8.7) g/dL Albumin (3.5-5.2) g/dL Globulin (1.3-4.6) g/dL Influenza Type A A g Negative (Negative) Influenza Type B A g Negative (Negative) 12/13/19 12/13/19 12/13/19 Range/Units 07:15 07:15 07:15 WBC (4.0-10.0) 10^3/ uL RBC (4.1-5.3) 10^6/u L Hgb (11.5-15.3) g/dL Hct (37.0-47.0) % MCV (81-99) fL MCH (28.0-34.0) pg MCHC (30.0-36.0) g/dL RDW (12.1-15.1) % Plt Count (130-400) 10^3/c mm MPV (7.4-10.4) fL Neut % (Auto) % Lymph % (Auto) % [place] % (Auto) % Eos % (Auto) % Baso % (Auto) % Neut # (Auto) (1.8-7.7) 10^3/u L Lymph # (Auto) (0.8-4.8) 10^3/u L Dodge # (Auto) (0.2-0.9) 10^3/u L Eos # (Auto) (0.0-0.8) 10^3/u L Baso # (Auto) (0.0-0.1) 10^3/u L Nucleated RBC % (a uto) % Nucleated RBCs # /100WBC D-Dimer 0.76 H (0-0.59) ug/mIFE U Specimen Type Sample Site ABG pH (7.35-7.45) ABG pCO2 (35-45) mmHg ABG pO2 (80.0-100.0) mmH g ABG HCO3 (22-26) mmol/L ABG O2 Saturation ABG Base Excess (-2.0-2.0) mmol/ L Ron Test A-a O2 Gradient (5-10) mmHg Hematocrit (37-47) % Hgb O2 Saturation (95-100) % Carboxyhemoglobin (0.4-20.1) %THgb Methemoglobin (0.4-1.5) % Total Hemoglobin (12-16) g/dL Sodium 140 (131-143) mmol/L Potassium 5.0 (3.5-5.0) mmol/L Glucose 225 H (70-115) mg/dL Ionized Calcium (1.1-1.4) mmol/L O2 Delivery Device O2 Liters/Min % FiO2 % Dehydrating Press Operator ID Chloride 99 (98-107) mmol/L Carbon Dioxide 29 (22-29) mmol/L Anion Gap 17.0 (5-19) BUN 15 (8-23) mg/dL Creatinine 0.8 (0.5-0.9) mg/dL Calculated Osmolal ity 293 (285-295) mOsm/k g Lactic Acid 1.8 (0.5-2.2) mmol/L Calcium 9.8 (8.5-10.5) mg/dL Ferritin 8 L (15-150) ng/mL Total Bilirubin 0.2 (0.15-1.2) mg/dL AST 18 (0-32) U/L ALT 21 (0-33) U/L Alkaline Phosphata se 121 H (35-105) IU/L Lactate Dehydrogen ase 201 (135-214) U/L Troponin T Baselin e (0-10) ng/mL C-Reactive Protein 8.8 H (0.0-4.9) mg/L NT-Pro-B Natriuret Pep 1471 H (0-125) pg/mL Total Protein 7.5 (6.6-8.7) g/dL Albumin 4.6 (3.5-5.2) g/dL Globulin 2.9 (1.3-4.6) g/dL Influenza Type A A g (Negative) Influenza Type B A g (Negative) 12/13/19 12/13/19 Range/Units 07:15 08:18 WBC (4.0-10.0) 10^3/ uL RBC (4.1-5.3) 10^6/u L Hgb (11.5-15.3) g/dL Hct (37.0-47.0) % MCV (81-99) fL MCH (28.0-34.0) pg MCHC (30.0-36.0) g/dL RDW (12.1-15.1) % Plt Count (130-400) 10^3/c mm MPV (7.4-10.4) fL Neut % (Auto) % Lymph % (Auto) % Dodge % (Auto) % Eos % (Auto) % Baso % (Auto) % Neut # (Auto) (1.8-7.7) 10^3/u L Lymph # (Auto) (0.8-4.8) 10^3/u L [place] # (Auto) (0.2-0.9) 10^3/u L Eos # (Auto) (0.0-0.8) 10^3/u L Baso # (Auto) (0.0-0.1) 10^3/u L Nucleated RBC % (a uto) % Nucleated RBCs # /100WBC D-Dimer (0-0.59) ug/mIFE U Specimen Type Arterial Sample Site Radial, left ABG pH 7.37 (7.35-7.45) ABG pCO2 50.3 H (35-45) mmHg ABG pO2 75.4 L (80.0-100.0) mmH g ABG HCO3 29.0 H (22-26) mmol/L ABG O2 Saturation 95.5 ABG Base Excess 3.1 H (-2.0-2.0) mmol/ L Ron Test Pos A-a O2 Gradient 75.3 H (5-10) mmHg Hematocrit 26.3 L (37-47) % Hgb O2 Saturation 93.3 L (95-100) % Carboxyhemoglobin 1.1 (0.4-20.1) %THgb Methemoglobin 1.3 (0.4-1.5) % Total Hemoglobin 8.6 L (12-16) g/dL Sodium 142.0 (131-143) mmol/L Potassium 4.0 (3.5-5.0) mmol/L Glucose 205.0 H (70-115) mg/dL Ionized Calcium 1.2 (1.1-1.4) mmol/L O2 Delivery Device Bipap O2 Liters/Min % FiO2 30.0 % Dehydrating Press Operator ID cak Chloride (98-107) mmol/L Carbon Dioxide (22-29) mmol/L Anion Gap (5-19) BUN (8-23) mg/dL Creatinine (0.5-0.9) mg/dL Calculated Osmolal ity (285-295) mOsm/k g Lactic Acid (0.5-2.2) mmol/L Calcium (8.5-10.5) mg/dL Ferritin (15-150) ng/mL Total Bilirubin (0.15-1.2) mg/dL AST (0-32) U/L ALT (0-33) U/L Alkaline Phosphata se (35-105) IU/L Lactate Dehydrogen ase (135-214) U/L Troponin T Baselin e 20 H (0-10) ng/mL C-Reactive Protein (0.0-4.9) mg/L NT-Pro-B Natriuret Pep (0-125) pg/mL Total Protein (6.6-8.7) g/dL Albumin (3.5-5.2) g/dL Globulin (1.3-4.6) g/dL Influenza Type A A g (Negative) Influenza Type B A g (Negative) Discharge Plan Discharge Patient Disposition: Admitted As Inpatient Admit Provider: Eleazar Duenas Referrals: Ziyad Esparza DO [Primary Care Provider] - Discharge Date/Time: 12/13/19 10:35 Coding Level of Care Code ED Horseback Riding Instructor for Chg Fwd Exam Comprehensive
--- NOTE | 2019-12-13 07:06 | ECG_ITS ---
Measurements Intervals [place] Rate: 129 P: 67 NH: 170 QRS: 53 QRSD: 101 T: 38 QT: 326 QTc: 478 SINUS TACHYCARDIA LEFT VENTRICULAR HYPERTROPHY AND ST-T CHANGE [VOLTAGE CRITERIA PLUS ST/T ABN ABNORMALITY] INTERPRETATION BASED ON A DEFAULT AGE OF 40 YEARS Compared to ECG 10/17/2019 10:10:10 ST (T wave) deviation now present Sinus rhythm no longer present T-wave abnormality no longer present Possible ischemia no longer present Electronically Signed On 12-13-2019 15:35:21 CDT by Gigi Louie M.D. [email or web address]
--- NOTE | 2019-12-13 07:06 | XR_ITS ---
WS: [id number] PORTABLE CHEST HISTORY: dyspnea/cough COMPARISON: 10/17/2019 Hyperinflated lungs with diffuse coarsened interstitial thickening. Mild progression since the prior study. Suspect fluid overload and interstitial edema. Mild pleural thickening on the RIGHT. Cardiac size: Normal. Mediastinum/Aorta: Mild atherosclerosis aorta. Severe osteopenia. Prior fusion hardware at the thoracolumbar region. Distal LEFT clavicle is poorly seen. May be due to osteopenia. XR/XR chest 1V portable [id number] IMPRESSION: 1. Interval development of mild interstitial edema. 2. Chronic emphysema.
[2019-12-13 07:11] LABS: ABG PCO2 72.8 mmHg (35-45); ABG PH Result 7.21 (7.35-7.45); Arterial Blood Gas Hematocrit 28.4 % (37-47); Base Excess ABG 0.6 mmol/L (-2.0-2.0); Blood Gas Allen Test Pos; Blood Gas Sample Site Radial, left; Blood Gas Sample Type Arterial; Carboxyhemoglobin 0.9 %THgb (0.4-20.1); HCO3 ABG 29.3 mmol/L (22-26); HGB O2 Sat 90.8 % (95-100); Ionized Calcium Level - ABG 1.2 mmol/L (1.1-1.4); Methemoglobin 0.6 % (0.4-1.5); Oxygen Device NC; Oxygen Saturation ABG 92.1; PO2 ABG 81.6 mmHg (80.0-100.0); Potassium Level - ABG 4.1 mmol/L (3.5-5.0); Total Hemoglobin 9.3 g/dL (12-16)
--- NOTE | 2019-12-13 07:19 | PC.NURSE ---
portable xray at bedside
[2019-12-13 07:24] LABS: Basophils # 0.1 10^3/uL (0.0-0.1); Basophils % 0.8 %; Eosinophils # 0.3 10^3/uL (0.0-0.8); Eosinophils % 2.8 %; Hematocrit 35.6 % (37.0-47.0); Hemoglobin 9.6 g/dL (11.5-15.3); Lymphocytes # 3.3 10^3/uL (0.8-4.8); Lymphocytes % 30.6 %; Mean Corpuscular Hemoglobin 22.6 pg (28.0-34.0); Mean Corpuscular Volume 83.8 fL (81-99); Mean Platelet Volume 11.7 fL (7.4-10.4); Monocytes # 1.2 10^3/uL (0.2-0.9); Monocytes % 10.7 %; Neutrophils # 5.9 10^3/uL (1.8-7.7); Neutrophils % 54.8 %; Nucleated Red Blood Cells % 0 %; Platelet Count 445 10^3/cmm (130-400); Red Blood Count 4.25 10^6/uL (4.1-5.3); Red Cell Distribution Width 16.5 % (12.1-15.1); White Blood Count 10.7 10^3/uL (4.0-10.0)
[2019-12-13 07:56] LABS: Lactic Sepsis W/Reflex 1.8 mmol/L (0.5-2.2)
[2019-12-13 07:58] LABS: Troponin(5th) Baseline 20 ng/mL (0-10)
[2019-12-13 08:01] LABS: D Dimer 0.76 ug/mIFEU (0-0.59)
[2019-12-13 08:07] LABS: Alanine Aminotransferase 21 U/L (0-33); Albumin Level 4.6 g/dL (3.5-5.2); Alkaline Phosphatase 121 IU/L (35-105); Aspartate Amino Transferase 18 U/L (0-32); Blood Urea Nitrogen 15 mg/dL (8-23); C Reactive Protein 8.8 mg/L (0.0-4.9); Calcium 9.8 mg/dL (8.5-10.5); Carbon Dioxide 29 mmol/L (22-29); Chloride 99 mmol/L (98-107); Ferritin 8 ng/mL (15-150); Globulin 2.9 g/dL (1.3-4.6); Glucose 225 mg/dL (65-115); Lactate Dehydrogenase 201 U/L (135-214); NT Pro B Type Natriuretic Pept 1471 pg/mL (0-125); Osmolality Calculated 293 mOsm/kg (285-295); Sodium 140 mmol/L (136-145); Total Bilirubin 0.2 mg/dL (0.15-1.2); Total Protein 7.5 g/dL (6.6-8.7)
[2019-12-13 08:13] LABS: Influenza A by IFA Negative (Negative); Influenza B by IFA Negative (Negative)
[2019-12-13] MEDS: ipratropium-albuterol 3 mL Neb INHALATION (08:13)
[2019-12-13 08:29] LABS: ABG PCO2 50.3 mmHg (35-45); ABG PH Result 7.37 (7.35-7.45); Alveolar-Arterial Oxygen Gradi 75.3 mmHg (5-10); Arterial Blood Gas Hematocrit 26.3 % (37-47); Base Excess ABG 3.1 mmol/L (-2.0-2.0); Blood Gas Allen Test Pos; Blood Gas Sample Site Radial, left; Blood Gas Sample Type Arterial; Carboxyhemoglobin 1.1 %THgb (0.4-20.1); HGB O2 Sat 93.3 % (95-100); Ionized Calcium Level - ABG 1.2 mmol/L (1.1-1.4); Methemoglobin 1.3 % (0.4-1.5); Oxygen Device BIPAP; Oxygen Saturation ABG 95.5; PO2 ABG 75.4 mmHg (80.0-100.0); Total Hemoglobin 8.6 g/dL (12-16)
[2019-12-13] MEDS: FUROsemide 10 mg/mL SDV 2mL 20 MG IVP (08:39)
--- NOTE | 2019-12-13 09:06 | ECG_ITS ---
Measurements Intervals [place] Rate: 99 P: 72 MD: 166 QRS: 37 QRSD: 98 T: 67 QT: 375 QTc: 482 SINUS RHYTHM LEFT VENTRICULAR HYPERTROPHY AND ST-T CHANGE [VOLTAGE CRITERIA PLUS ST/T AB ABNORMALITY] Compared to ECG 10/17/2019 10:10:10 ST (T wave) deviation now present T-wave abnormality no longer present Possible ischemia no longer present Electronically Signed On 12-13-2019 15:36:03 CDT by Gigi Louie M.D. [email or web address]
[2019-12-13 10:10] LABS: Troponin 5 2HR 48.47 ng/mL (0-10)
[2019-12-13 10:12] LABS: Troponin 5 2HR Delta 28.47 ABS# (0-10)
--- NOTE | 2019-12-13 10:15 | PC.NURSE ---
pt tested for COVID 19-lakhani virus. Pt remains on droplet precautions at this time
--- NOTE | 2019-12-13 13:05 | P.HP_ITS ---
Providers/Chief Complaint Admitting Physician: Eleazar Duenas MD Primary Care Provider: Ziyad Esparza DO Chief Complaint: HYPERCAPNIC RESP FAILURE, CHF History of Present Illness Pratima Beckford is a 74 year old female with past medical history of COPD, emphysema on 3 L oxygen supplementation, type 2 diabetes mellitus on chronic insulin, severe aortic stenosis getting work-up for TAVR to be done at [facility], normal coronaries as per the angiogram done in October 2019, recent history of adenocarcinoma of transverse colon post resection followed by recent colonoscopy which revealed adenomatous polyp in transverse colon, chronic anemia, hypertension, dyslipidemia who presented to the ER today complaining of shortness of breath. Patient states she was doing absolutely fine last night when when she went to sleep. Today morning when she woke up she was not having any symptoms but on coming back from the bathroom she started complaining of palpitations which was followed by shortness of breath. Shortness of breath was acute getting worse on lying down on exertion. Patient denies of having any fevers, nausea, vomiting, flulike symptoms, runny nose, abdominal pain, diarrhea, melena or hematemesis. Shortness of breath associated with mild wheezing. Her symptoms were not associated with syncope. She also is complaining of mild bilateral lower limb swelling. She denies of having any chest pain on rest or exertion. In the ER patient was found to be in hypercapnic respiratory failure so was started on BiPAP ventilation after which she improved. Her blood work showed mild leukocytosis, anemia, elevated proBNP. Review of Systems Const: Denies: fever, chills, body aches, change in appetite, malaise, night sweats, diaphoresis, change in sleep pattern, daytime sleepiness or snoring Eyes: Denies: change in vision, blurry vision, photophobia, eye discomfort or eye discharge ENMT: Denies: throat pain, enlarged tonsils, hoarseness, mouth pain, oral sores/lesions, dry mouth, tinnitus, nasal congestion or post nasal drip Card: Reports: palpitations, swelling of feet/ankles and shortness of breath when lying down; Denies: chest pain, irregular heart rhythm, edema, lightheadedness, syncope, pre-syncope, shortness of breath on exertion, leg pain with exertion or bluish discoloration of hands/feet Resp: Reports: shortness of breath, non-productive cough and wheezing; Denies: productive cough, stridor, pain on inspiration, change in phlegm color, coughing up blood or chest congestion GI: Denies: abdominal pain, nausea, vomiting, vomiting blood, coffee grounds in vomit, difficulty swallowing, heartburn/indigestion, diarrhea, constipation, bloating, cramping, change in bowel habits, painful bowel movements, blood in stool or black tarry stool : Denies: flank pain, painful urination, urinary frequency, urinary urgency, urinary hesitancy, nighttime urination or blood in urine Musc: Denies: neck pain, back pain, extremity pain, joint pain, joint swelling, redness, joint stiffness or limited range of motion Neuro: Denies: headache, numbness in extremities, weakness in extremities, changes in sensation, lack of coordination, difficulty walking, frequent falls, dizziness, vertigo, confusion, slurred speech, difficulty communicating thoughts or seizure-like activity Psych: Denies: anxiety, depression, mood swings, panic attacks, hopelessness or irritability Endo: Denies: excessive urination, excessive thirst, tired all the time, cold intolerance, excessive sweating, flushing or heat intolerance Sudeep/Lymph: Denies: easy bruising or easy bleeding All/Imm: Denies: tongue swelling, facial swelling or acute wheezing Medications/Allergies Home Medications Medication Instructions Recorded Confirmed Last Taken Type Lactobacillus rhamnosus GG 1 cap PO DAILY PRN 12/13/19 12/13/19 Unknown History [Culturelle] acetaminophen [Tylenol] 650 mg PO Q6H PRN 12/13/19 12/13/19 Unknown History bisacodyl 10 mg MA DAILY PRN 12/13/19 12/13/19 Unknown History diphenhydramine HCl [Benadryl] 25 mg PO Q6H PRN 12/13/19 12/13/19 Unknown History insulin aspart U-100 [Novolog 6 unit SUBCUT TID 12/13/19 12/13/19 Unknown History Flexpen U-100 Insulin] magnesium hydroxide [Milk of 30 ml PO DAILY PRN 12/13/19 12/13/19 Unknown History Magnesia] sodium phosphates [Fleet Enema] 118 ml MA DAILY PRN 12/13/19 12/13/19 Unknown History Allergies Allergy/AdvReac Type Severity Reaction Status Date / Time chlorzoxazone Allergy ALGY-Rash Verified 11/10/19 07:21 dexamethasone Allergy ADR-Halluci Verified 11/10/19 07:21 nating hexachlorophene Allergy ADR-Gastrointestinal Verified 11/10/19 07:21 Upset metformin Allergy ADR-Abdominal Verified 11/10/19 07:21 Pain pregabalin [From Lyrica] Allergy ADR-Swelling Verified 11/10/19 07:21 of the Eye PFSH Acute PFSH: Medical History Anemia Aortic stenosis Carcinoma of sigmoid colon Centrilobular emphysema Diabetes Dyslipidemia HTN (hypertension) Tobacco abuse, in remission Surgical History History of colon resection History of colonoscopy with polypectomy Family History Denies family history of Anesthesia complication Bleeding disorder Social History Smoking and tobacco status: never smoked Second hand smoke exposure: No Alcohol intake: never Adopted: No Caregiver/support person: Yes Lives independently: No Household members: none Housing: Assisted Living Facility Marital status: / Highest education level completed: High School Graduate service: No Current occupational status: disabled Current occupational exposures/hazards: No Pets and animals: No History of recent travel: No Sexually active: No Current gender identity: Female Unique/Alevism: Voodoo Special unique needs: No Agree to transfusion: No Financial difficulty paying for basics: Decline to Answer Vitals/I&O/Wt Last Vital Signs Temp 98.6 F 12/13/19 11:00 Pulse 88 12/13/19 11:26 Resp 18 12/13/19 11:00 BP 132/57 12/13/19 11:00 Pulse Ox 98 12/13/19 11:26 Weight last 48 hrs Weight 77.111 kg Physical Exam Narrative: EXAM NARRATIVE: General: No acute distress, AO x3 HEENT: PERRLA, pupils bilaterally equal and reactive Chest: Normal vesicular breath sounds, bilateral fine crackles present in lower zones, rhonchi present bilaterally up to middle chest, equal good air entry bilaterally CVS: S1-S2 regular, ejection systolic murmur present in the aortic area, 2/6, tachycardia, no gallops, no rubs Abdomen: Soft, nontender, no organomegaly, bowel sounds present Neuro: No focal deficits, no facial deformity, AO x3, power 5/5 in all limbs Data : 12/13/19 07:15 12/13/19 07:15 Micro: Microbiology 12/13/19 07:40 Blood Culture - Preliminary Blood SPECIMEN COLLECTED 12/13/19 07:15 Blood Culture - Preliminary Blood SPECIMEN COLLECTED A&P Assessment and plan (1) Hypercapnic respiratory failure: Status: Acute (2) Aortic stenosis: Status: Acute (3) Diastolic heart failure: Status: Acute (4) Centrilobular emphysema: Status: Acute (5) Anemia: Status: Acute (6) HTN (hypertension): Status: Acute (7) Diabetes: Status: Acute (8) Dyslipidemia: Status: Acute Additional A&P Information Hypercapnic respiratory failure: A combination of exacerbation of COPD and acute decompensation of diastolic heart failure. Most recent echo in October 2019 showed an EF of 60% with grade 1 diastolic heart failure with severe aortic stenosis when calculated mean aortic valve area was 0.49 cm? and mean gradient was 61 mmHg across the valve. proBNP elevated. Patient was given 20 mg of IV Lasix in the ER. We will hold off on further diuresis for today and assess again later in the day. Strict input output charting. Daily weights. Head and elevation to 40 degrees. Exacerbation of COPD: Patient was given Solu-Medrol in the ER. Start patient on prednisone 40 mg daily for 5 days. We will start patient on Advair and Spiriva along with budesonide twice daily. Continue oxygen supplementation keeping saturation over 90%. Patient would need home O2 evaluation before discharge. Confirmed with the senior care, patient would require COVID 19 testing before discharge. BiPAP ventilation as needed and nightly. Check procalcitonin. No occult consolidation present on the chest x-ray, very mild leukocytosis without any left shift. We will hold off on IV antibiotics for now. Anemia: With history of adenocarcinoma of colon. Baseline hemoglobin seems to be in high tens. Right now 9.6. Check iron panel, stool for occult blood. Most recent colonoscopy earlier this year showed tubular adenoma but was done on suboptimal colon prep. If stool for occult blood is positive will consult surgery for further evaluation. Continue 40 mg of Protonix daily. Severe aortic stenosis: Definitely playing into the symptoms. Continue Lopressor 25 mg twice daily to maintain her heart rate. If heart rate continues to remain in 90s will increase the dose of Lopressor. Type 2 diabetes mellitus: Continue home dose of glargine 18 units nightly, NovoLog 6 units subcu 3 times daily along with moderate insulin sliding scale. Check HbA1c. Hypertension: Blood pressure well maintained for now. We will continue to monitor blood pressure as with severe aortic stenosis can lead her to having heart failure-like symptoms. For now continue home dose of Lopressor as discussed above. Continue chronic medications like citalopram. We will change medications as per the clinical course. Full code. Carb consistent low-salt diet. Heparin for DVT prophylaxis. Attestations Medical Necessity Statement*: Hypercapnic respiratory failure, COPD exacerbation, severe aortic stenosis, anemia Admission for more than 2 midnights Time Spent in Patient Care: Greater than 35 minutes Coding Level of Care Code Acute Safety Lead for [facility] Diagnoses Hypercapnic respiratory failure J96.92 Aortic stenosis I35.0 Diastolic heart failure I50.30 Centrilobular emphysema J43.2 Anemia D64.9 HTN (hypertension) I10 Diabetes E11.9 Dyslipidemia E78.5
[2019-12-13 14:16] LABS: Troponin 5 6HR 41.88 ng/mL (0-10)
[2019-12-13 14:22] LABS: Troponin 5 6HR Delta 21.88 ng/L (0-12)
[2019-12-13 14:24] LABS: Procalcitonin 0.17 ng/mL (0-0.5); Thyroid Stimulating Hormone 0.75 uIU/mL (0.27-4.20)
[2019-12-13 14:35] LABS: Iron 12 ug/dL (37-145); Magnesium 2.1 mg/dL (1.7-2.3); Percent Saturation 3.7 % (20-50); Total Iron Binding Capacity 324 mcg/dl; Unsaturated Iron Binding 312 ug/dL (112-347)
[2019-12-13] MEDS: heparin 5,000 unit/mL INJ 1 mL 5000 UNIT SUBCUT ×2 (14:45→20:32)
[2019-12-13] MEDS: oxyCODONE 5 mg IR Tab/Cap PO ×2 (14:46→20:33)
[2019-12-13 15:06] LABS: Urine Appearance Clear (CLEAR); Urine Color Yellow (Yellow)
[2019-12-13 15:07] LABS: Add Urine Culture? No; Bilirubin Urine Neg (NEGATIVE); Blood Urine Neg (Negative); Glucose Urine UA 4+ (Normal); Ketones Urine Negative (Negative); Leukocyte Esterase Urine Negative (Negative); Nitrate Urine Negative (Negative); Protein Urine Neg (Negative); Specific Gravity, Urine 1.005 (1.005-1.030); Squamous Epithelial Cell Urine 0-4 (0-5); Urobilinogen Urine Norm (Negative); pH Urine 7 (5-7)
--- NOTE | 2019-12-13 16:31 | PC.SOCIAL ---
IM initialed explained and copy provided to patient. She understands she is not being dc'd today. She had no questions.
[2019-12-13 17:01] LABS: Glucose Point of Care 173 mg/dL (70-110)
[2019-12-13 17:29] LABS: Bacteria Urine TRACE
[2019-12-13] MEDS: metoprolol tartrate 25 mg Tablet PO (17:45)
[2019-12-13 20:20] LABS: Glucose Point of Care 195 mg/dL (70-110)
[2019-12-13] MEDS: atorvastatin 40 mg Tablet 80 MG PO (20:33)
[2019-12-14] VITALS (18 sets, daily range): BP systolic 98–125; BP diastolic 49–71; PULSE 71–86; RESP 15–24; TEMP 36.4–36.9; O2SAT 96–100
[2019-12-14] MEDS: oxyCODONE 5 mg IR Tab/Cap PO ×3 (03:08→14:31)
[2019-12-14 04:09] LABS: Basophils % 0.2 %; Hematocrit 29.4 % (37.0-47.0); Lymphocytes # 1.2 10^3/uL (0.8-4.8); Lymphocytes % 12.5 %; Mean Corpuscular HGB Conc 27.2 g/dL (30.0-36.0); Mean Corpuscular Hemoglobin 22.7 pg (28.0-34.0); Mean Corpuscular Volume 83.3 fL (81-99); Monocytes # 0.7 10^3/uL (0.2-0.9); Monocytes % 7.7 %; Neutrophils # 7.4 10^3/uL (1.8-7.7); Neutrophils % 79.4 %; Nucleated Red Blood Cells % 0 %; Platelet Count 327 10^3/cmm (130-400); Red Blood Count 3.53 10^6/uL (4.1-5.3); Red Cell Distribution Width 16.5 % (12.1-15.1); White Blood Count 9.3 10^3/uL (4.0-10.0)
[2019-12-14 04:30] LABS: Alanine Aminotransferase 14 U/L (0-33); Albumin Level 3.9 g/dL (3.5-5.2); Alkaline Phosphatase 89 IU/L (35-105); Anion Gap 14.1 (5-19); Aspartate Amino Transferase 12 U/L (0-32); Blood Urea Nitrogen 20 mg/dL (8-23); Calcium 9.5 mg/dL (8.5-10.5); Carbon Dioxide 29 mmol/L (22-29); Chloride 101 mmol/L (98-107); Globulin 2.7 g/dL (1.3-4.6); Glucose 135 mg/dL (65-115); Osmolality Calculated 289 mOsm/kg (285-295); Potassium 4.1 mmol/L (3.5-5.1); Sodium 140 mmol/L (136-145); Total Bilirubin 0.3 mg/dL (0.15-1.2); Total Protein 6.6 g/dL (6.6-8.7)
[2019-12-14] MEDS: heparin 5,000 unit/mL INJ 1 mL 5000 UNIT SUBCUT ×2 (04:54→13:20)
[2019-12-14] MEDS: metoprolol tartrate 25 mg Tablet PO ×2 (07:42→17:43)
[2019-12-14] MEDS: tamsulosin 0.4 mg Capsule PO (07:43)
[2019-12-14] MEDS: iron polysaccharide complex 150 mg Capsule PO ×2 (07:43→17:43)
[2019-12-14] MEDS: citalopram 20 mg Tablet PO (07:43)
[2019-12-14] MEDS: pantoprazole 40 mg SDV IVP ×2 (08:24→21:35)
[2019-12-14 13:37] LABS: Glucose Point of Care 156 mg/dL (70-110)
--- NOTE | 2019-12-14 13:46 | PM.PN ---
Subjective Subjective: Interval history: No acute events overnight. Patient states she has not had any more symptoms of shortness of breath or palpitations. On examination she is extremely anxious about her low hemoglobin. She wants to be transferred to [facility] for emergent TAVR as she states she cannot take any more episodes of shortness of breath anymore. She also states she wants to be transferred to [facility] for removal of tubular adenoma from her colon. She thinks that is the cause of her low hemoglobin. Vitals/I&O/Wt Last Vital Signs Temp 98.2 F 12/14/19 12:00 Pulse 85 12/14/19 12:00 Resp 19 H 12/14/19 12:00 BP 109/55 12/14/19 12:00 Pulse Ox 100 12/14/19 12:00 12/13/19 12/14/19 12/14/19 22:59 06:59 14:59 Intake Total 240 / 240 240 / 480 826 / 826 Output Total 1100 / 1100 350 / 1450 200 / 200 Balance -860 / -860 -110 / -970 626 / 626 Weight last 48 hrs Weight 77.111 kg Physical Exam Narrative: EXAM NARRATIVE: General: No acute distress, AO x3 pallor, anxious HEENT: PERRLA, pupils bilaterally equal and reactive Chest: Normal vesicular breath sounds, bilateral fine crackles present in lower zones, rhonchi present bilaterally up to middle chest, equal good air entry bilaterally CVS: S1-S2 regular, ejection systolic murmur present in the aortic area, 2/6, tachycardia, no gallops, no rubs Abdomen: Soft, nontender, no organomegaly, bowel sounds present Neuro: No focal deficits, no facial deformity, AO x3, power 5/5 in all limbs Data : 12/14/19 03:35 12/14/19 03:35 Micro: Microbiology 12/13/19 18:18 MRSA Culture - Final Nose 12/13/19 07:40 Blood Culture - Preliminary Blood NEGATIVE TO DATE 12/13/19 07:15 Blood Culture - Preliminary Blood NEGATIVE TO DATE A&P Assessment and plan (1) Hypercapnic respiratory failure: Status: Acute (2) Aortic stenosis: Status: Acute (3) Diastolic heart failure: Status: Acute (4) Centrilobular emphysema: Status: Acute (5) Anemia: Status: Acute (6) HTN (hypertension): Status: Acute (7) Diabetes: Status: Acute (8) Dyslipidemia: Status: Acute Additional A&P Information Hypercapnic respiratory failure: A combination of exacerbation of COPD and acute decompensation of diastolic heart failure. Most recent echo in October 2019 showed an EF of 60% with grade 1 diastolic heart failure with severe aortic stenosis when calculated mean aortic valve area was 0.49 cm? and mean gradient was 61 mmHg across the valve. proBNP elevated. Overall 1lt negative yesterday. We will start her back on her home dose of Lasix 20 mg daily. Strict input output charting. Daily weights. Head and elevation to 40 degrees. Anemia: With history of adenocarcinoma of colon. Most recent colonoscopy earlier this year showed tubular adenoma but was done on suboptimal colon prep. Anemia worsening. 8.0 today. Definitely playing into patient's symptoms given the fact that she has severe aortic stenosis. Stool for occult blood awaited. Check hemoglobin again in evening. We will keep low threshold for PRBC transfusion. If falls below 8 we will transfuse her today. Will consult surgery if stool for occult blood positive. Change Protonix to 40 mg IV twice daily. Stop aspirin and prednisone given decline in hemoglobin. Start on oral iron supplementation as iron studies suggestive of severe iron deficiency anemia. Exacerbation of COPD: Stop prednisone given decline in hemoglobin. Patient does not seem to be in exacerbation anymore. We will start patient on Advair and Spiriva along with budesonide twice daily. Continue oxygen supplementation keeping saturation over 90%. Patient would need home O2 evaluation before discharge. COVID 19 testing negative BiPAP ventilation as needed and nightly. As no consolidation present on chest x-ray and procalcitonin negative we will hold off on antibiotics for now. Leukocytosis resolved. Severe aortic stenosis: Definitely playing into the symptoms. Continue Lopressor 25 mg twice daily to maintain her heart rate. If heart rate continues to remain in 90s will increase the dose of Lopressor. Type 2 diabetes mellitus: Continue home dose of glargine 18 units nightly, NovoLog 6 units subcu 3 times daily along with moderate insulin sliding scale. Check HbA1c. Hypertension: Blood pressure well maintained for now. We will continue to monitor blood pressure as with severe aortic stenosis can lead her to having heart failure-like symptoms. For now continue home dose of Lopressor as discussed above. Continue chronic medications like citalopram. We will change medications as per the clinical course. Full code. Carb consistent low-salt diet. Heparin for DVT prophylaxis. We will continue for now. If hemoglobin continues to decline we will stop heparin Patient extremely anxious and wants transfer to the [facility] for tubular adenoma removal and TAVR. Explained to the patient in detail if stool for occult blood is positive will consult surgery and as per the recommendation if required will transfer to [facility]. Also explained that [facility] will not accept patient continues to be having definite confirmation that patient is having GI loss of blood. Also showed the patient that for now patient is under monitoring and if required will transfuse her PRBC under control settings. Attestations Medical Necessity Statement*: Severe Aortic, congestive heart failure, severe anemia possible GI bleed Time Spent in Patient Care: Greater than 35 minutes (>than 50% of time spent in counselling and/or direct pt care on unit). Coding Level of Care Code Acute Pediatric Occupational Therapist for [facility] Diagnoses Hypercapnic respiratory failure J96.92 Aortic stenosis I35.0 Diastolic heart failure I50.30 Centrilobular emphysema J43.2 Anemia D64.9 HTN (hypertension) I10 Diabetes E11.9 Dyslipidemia E78.5
[2019-12-14] MEDS: FUROsemide 20 mg Tablet PO (14:32)
[2019-12-14 16:41] LABS: Glucose Point of Care 115 mg/dL (70-110)
[2019-12-14 16:48] LABS: Hematocrit 25.9 % (37.0-47.0); Hemoglobin 7.3 g/dL (11.5-15.3)
--- NOTE | 2019-12-14 17:25 | CTR_ITS ---
PROCEDURE INFORMATION: Exam: CT Abdomen And Pelvis With Contrast Exam date and time: 12/14/2019 7:37 PM Age: 74 years old Clinical indication: Other: Anemia; Prior surgery; Surgery type: Colon resection, hysto, exploratory, appy; Additional info: H/o adenocarcinoma, ongoing anemia TECHNIQUE: Imaging protocol: Computed tomography of the abdomen and pelvis with intravenous contrast. Axial, coronal and sagittal reformatted images were created and reviewed. Total DLP: 1183.79 mGy-cm Radiation optimization: All CT scans at this facility use at least one of these dose optimization techniques: automated exposure control; mA and/or kV adjustment per patient size (includes targeted exams where dose is matched to clinical indication); or iterative reconstruction. Contrast material: OMNI 300; Contrast volume: 95 ml; Contrast route: IV; Other contrast: Oral, 25; COMPARISON: CT abdomen pelvis w con* [id number] 08/05/2019 7:54 PM FINDINGS: Lungs: Mild subsegmental consolidation in the right greater than left lower lobes, likely due to atelectasis. Pleural space: Small, loculated left greater than right pleural effusions, similar to prior. Heart: Mild cardiomegaly. Trace pericardial effusion. Liver: Coarse calcified granuloma in the right hepatic lobe. Gallbladder and bile ducts: Cholelithiasis. Pancreas: Unremarkable. Spleen: Mild splenomegaly. Adrenals: Unremarkable. Kidneys and ureters: Non-obstructing left renal calculus. No hydronephrosis. Stomach and bowel: Evidence of prior bowel resection. Moderate amount of retained stool in the colon. No definite bowel wall thickening. No obstruction. No pneumatosis. Appendix: Appendix not identified with certainty but no right lower quadrant inflammatory change to suggest acute appendicitis. Intraperitoneal space: No free fluid. No organized fluid collection. No free air. Vasculature: Moderate atherosclerotic disease. No aneurysm or dissection. Lymph nodes: No pathologically enlarged lymph nodes. Bladder: Unremarkable. Reproductive: 3.9 x 3 cm mildly complex left adnexal cystic lesion, increased in size since the prior study (previously 3.1 x 1.8 cm). Bones/joints: No acute osseous abnormality. Osteopenia. Degenerative changes. Chronic partial T12 and L4 compression deformities with vertebroplasty material at T12. Partially visualized posterior thoracolumbar fusion hardware. Left hip arthroplasty in place. Fixation hardware in the right proximal femur. Soft tissues: Unremarkable. CT/CT abdomen pelvis w con* [id number] IMPRESSION: 1. 3.9 x 3 cm mildly complex left adnexal cystic lesion, increased in size since the prior. If clinically indicated, pelvic ultrasound may be obtained for further evaluation. 2. Small, loculated left greater than right pleural effusions, similar to prior. 3. Additional findings, as above. Radiation Dose CTDIVOL = (mGy): DLP = 1183.79 (mGy-cm)
--- NOTE | 2019-12-14 18:38 | PC.NURSE ---
rcvd verbal order from Dr Duenas for Xanax 0.25mg once now. Cork Mixer put order in for Xanax
[2019-12-14] MEDS: ALPRAZolam 0.25 mg Tablet PO (18:54)
[2019-12-14] MEDS: FUROsemide 10 mg/mL SDV 2mL 20 MG IVP (19:40)
[2019-12-14 20:29] LABS: Glucose Point of Care 162 mg/dL (70-110)
[2019-12-14] MEDS: iohexol 300 mg/mL 50 mL Btl PO (21:15)
[2019-12-14] MEDS: iohexol 300 mg/mL 100 mL Btl IV (21:15)
[2019-12-14] MEDS: atorvastatin 40 mg Tablet 80 MG PO (21:26)
[2019-12-15] VITALS (16 sets, daily range): BP systolic 114–138; BP diastolic 63–69; PULSE 71–96; RESP 16–27; TEMP 36.4–37.3; O2SAT 97–99
[2019-12-15] MEDS: oxyCODONE 5 mg IR Tab/Cap PO ×2 (02:15→10:01)
[2019-12-15 05:19] LABS: Basophils % 0.4 %; Eosinophils # 0.1 10^3/uL (0.0-0.8); Eosinophils % 0.7 %; Hematocrit 29.8 % (37.0-47.0); Hemoglobin 8.5 g/dL (11.5-15.3); Lymphocytes # 1.4 10^3/uL (0.8-4.8); Lymphocytes % 18.7 %; Mean Corpuscular HGB Conc 28.5 g/dL (30.0-36.0); Mean Corpuscular Hemoglobin 22.8 pg (28.0-34.0); Mean Corpuscular Volume 80.1 fL (81-99); Mean Platelet Volume 11.1 fL (7.4-10.4); Monocytes # 0.6 10^3/uL (0.2-0.9); Monocytes % 8.3 %; Neutrophils # 5.2 10^3/uL (1.8-7.7); Neutrophils % 71.6 %; Nucleated Red Blood Cells % 0 %; Platelet Count 295 10^3/cmm (130-400); Red Blood Count 3.72 10^6/uL (4.1-5.3); Red Cell Distribution Width 16.3 % (12.1-15.1); White Blood Count 7.3 10^3/uL (4.0-10.0)
[2019-12-15 05:39] LABS: Alanine Aminotransferase 12 U/L (0-33); Albumin Level 3.7 g/dL (3.5-5.2); Alkaline Phosphatase 84 IU/L (35-105); Anion Gap 15.6 (5-19); Aspartate Amino Transferase 12 U/L (0-32); Blood Urea Nitrogen 18 mg/dL (8-23); Calcium 9.2 mg/dL (8.5-10.5); Carbon Dioxide 30 mmol/L (22-29); Chloride 100 mmol/L (98-107); Globulin 2.9 g/dL (1.3-4.6); Glucose 115 mg/dL (65-115); Osmolality Calculated 291 mOsm/kg (285-295); Potassium 3.6 mmol/L (3.5-5.1); Sodium 142 mmol/L (136-145); Total Bilirubin 0.4 mg/dL (0.15-1.2); Total Protein 6.6 g/dL (6.6-8.7)
[2019-12-15 06:35] LABS: Glucose Point of Care 115 mg/dL (70-110)
[2019-12-15] MEDS: pantoprazole 40 mg SDV IVP ×2 (09:18→20:29)
[2019-12-15] MEDS: FUROsemide 20 mg Tablet PO (09:19)
[2019-12-15] MEDS: metoprolol tartrate 25 mg Tablet PO ×2 (09:19→17:07)
[2019-12-15] MEDS: citalopram 20 mg Tablet PO (09:20)
[2019-12-15] MEDS: iron polysaccharide complex 150 mg Capsule PO ×2 (09:20→17:07)
[2019-12-15] MEDS: tamsulosin 0.4 mg Capsule PO (09:21)
--- NOTE | 2019-12-15 10:47 | P.PN_ITS ---
Subjective Subjective: Interval history: History and physical reviewed. Patient reports she feels less short of breath than yesterday but still had to use BiPAP earlier this morning for an episode of shortness of breath. She is worried about getting her aortic valve replaced. She is also worried about biopsy of a mass in her colon that occurred in September. Medications: Reviewed: Yes Vitals/I&O/Wt Last Vital Signs Temp 98.4 F 12/15/19 07:34 Pulse 92 12/15/19 08:43 Resp 20 H 12/15/19 10:01 BP 137/69 12/15/19 07:34 Pulse Ox 97 12/15/19 08:43 12/14/19 12/15/19 12/15/19 22:59 06:59 14:59 Intake Total 710 / 1536 120 / 1656 470 / 470 Output Total 1800 / 2000 400 / 2400 400 / 400 Balance -1090 / -464 -280 / -744 70 / 70 Weight last 48 hrs Weight 81.374 kg Physical Exam Narrative: EXAM NARRATIVE: General exam is an anxious white female Cardiovascular regular rate and rhythm with a 3/6 systolic murmur heard best in the aortic area Lungs clear but with diminished breath sounds bilaterally Abdomen is soft and positive bowel sounds Extremities no cyanosis or clubbing. Trace bilateral edema. Data : 12/15/19 04:37 12/15/19 04:37 Micro: Microbiology 12/14/19 20:49 Occult Blood (FIT) - Final Stool 12/13/19 18:18 MRSA Culture - Final Nose 12/13/19 07:40 Blood Culture - Preliminary Blood NEGATIVE TO DATE 12/13/19 07:15 Blood Culture - Preliminary Blood NEGATIVE TO DATE A&P Assessment and plan (1) Hypercapnic respiratory failure: Improved. Still using some BiPAP PRN and at night. COVID negative Status: Acute (2) Aortic stenosis: Has been referred for TAVR to [facility]. This has not yet occurred. Angiogram occurred on November 09, demonstrating normal coronaries, severe aortic stenosis. Aortic valve area per echocardiogram was 0.49 Status: Acute (3) Diastolic heart failure: Stable currently Status: Acute (4) Centrilobular emphysema: Continue Advair Status: Acute (5) Anemia: Received 1 unit packed red blood cells with appropriate increase in hemoglobin greater than 8. Continue Protonix Status: Acute (6) HTN (hypertension): Status: Acute (7) Diabetes: Continue current insulin Status: Acute (8) Dyslipidemia: Status: Acute Additional A&P Information History of colon mass/polyp with previous biopsy in September. At that time referred to Francesca MURRELL. This has not yet occurred. Patient came in with significant anemia, and is Hemoccult negative. She has received a blood transfusion. Surgery has been consulted, and consultation pending. Hypertension, stable Full code SCDs for DVT prophylaxis, secondary to significant anemia no pharmacological anticoagulation. Attestations Medical Necessity Statement*: Needs continued hospitalization for evaluation of anemia, CHF exacerbation. Coding Level of Care Code Acute Course Developer for [facility] Diagnoses Hypercapnic respiratory failure J96.92 Aortic stenosis I35.0 Diastolic heart failure I50.30 Centrilobular emphysema J43.2 Anemia D64.9 HTN (hypertension) I10 Diabetes E11.9 Dyslipidemia E78.5
--- NOTE | 2019-12-15 11:47 | PC.RESP ---
Patient given information on Pulmonary Rehab.
[2019-12-15 11:54] LABS: Glucose Point of Care 135 mg/dL (70-110)
[2019-12-15] MEDS: oxyCODONE 5 mg IR Tab/Cap 10 MG PO (17:07)
--- NOTE | 2019-12-15 17:20 | P.CONIM_ITS ---
Providers/Reason For Consult Consulting Physican/Specialty*: [place] Reason for Consult*: Anemia Attending Physician: Leon Robertson MD Primary Care Provider: Ziyad Esparza DO History of Present Illness History of Present Illness Pratima Beckford is a 74 year old female with multiple comorbidities including COPD, severe aortic stenosis awaiting TAVR who apparently had sigmoid colectomy by Dr. Shaw in [place]. Patient had been admitted to the hospital previously and had undergone a EGD and colonoscopy by my partner Dr. Kramer and a mass was noted in the transverse colon, though the colonoscopy was difficult due to poor poor bowel prep. The patient had subsequently been referred back to [place] but due to the COVID-19 situation the patient could not seek care there. She presents again with complaints of shortness of breath. She denies any abdominal pain nausea vomiting constipation diarrhea or bleeding per rectum. She had a CT abdomen and pelvis yesterday which did not show a mass and her FOBT was negative Review of Systems General: Reports: 10 or more systems reviewed and unremarkable except in HPI and below Meds/Allergies Home Medications and Allergies Home Medications Medication Instructions Recorded Confirmed Type Crestor 20 mg PO BEDTIME 09/13/19 12/13/19 History Stiolto Respimat 2 inh INHALATION DAILY 09/13/19 12/13/19 History citalopram 20 mg PO DAILY 09/13/19 12/13/19 History cyclobenzaprine 5 mg PO Q8H PRN 09/13/19 12/13/19 History multivitamin 1 tab PO DAILY 09/13/19 12/13/19 History ondansetron HCl [Zofran] 4 mg PO Q6H PRN 09/13/19 12/13/19 History oxycodone 5 - 10 mg PO Q6H 09/13/19 12/13/19 History potassium chloride 20 meq PO DAILY 09/13/19 12/13/19 History dapagliflozin 5 mg tablet 5 mg PO DAILY 10/01/19 12/13/19 History furosemide 20 mg tablet 20 mg PO DAILY tab 10/01/19 12/13/19 History glipizide 5 mg tablet 2.5 mg PO DAILY 10/01/19 12/13/19 History insulin aspart U-100 100 unit/mL See Rx Instructions .ROUTE 10/01/19 12/13/19 History (3 mL) subcutaneous pen .COMPLEX ml insulin glargine 100 unit/mL (3 18 unit SUBCUT BEDTIME ml 10/01/19 12/13/19 History mL) subcutaneous pen metoprolol tartrate 25 mg tablet 25 mg PO BID tab 10/01/19 12/13/19 History pantoprazole 40 mg tablet,delayed 40 mg PO BID 10/01/19 12/13/19 History release tamsulosin 0.4 mg capsule 0.4 mg PO DAILY 10/01/19 12/13/19 History albuterol sulfate 2 inh INHALATION Q6H PRN #8 gm 10/17/19 12/13/19 Rx polyethylene glycol 3350 [Miralax] 17 g PO BID PRN 11/09/19 12/13/19 History Lactobacillus rhamnosus GG 1 cap PO DAILY PRN 12/13/19 12/13/19 History [Culturelle] acetaminophen [Tylenol] 650 mg PO Q6H PRN 12/13/19 12/13/19 History bisacodyl 10 mg NE DAILY PRN 12/13/19 12/13/19 History diphenhydramine HCl [Benadryl] 25 mg PO Q6H PRN 12/13/19 12/13/19 History insulin aspart U-100 [Novolog 6 unit SUBCUT TID 12/13/19 12/13/19 History Flexpen U-100 Insulin] magnesium hydroxide [Milk of 30 ml PO DAILY PRN 12/13/19 12/13/19 History Magnesia] sodium phosphates [Fleet Enema] 118 ml NE DAILY PRN 12/13/19 12/13/19 History Allergies Allergy/AdvReac Type Severity Reaction Status Date / Time chlorzoxazone Allergy ALGY-Rash Verified 11/10/19 07:21 dexamethasone Allergy ADR-Halluci Verified 11/10/19 07:21 nating hexachlorophene Allergy ADR-Gastrointestinal Verified 11/10/19 07:21 Upset metformin Allergy ADR-Abdominal Verified 11/10/19 07:21 Pain pregabalin [From Lyrica] Allergy ADR-Swelling Verified 11/10/19 07:21 of the Eye Current Medications Current Medications Generic Name Dose Route Start Last Admin Trade Name Freq PRN Reason Stop Dose Admin Atorvastatin Calcium 80 mg 12/13/19 21:00 12/14/19 21:26 Lipitor PO 80 mg BEDTIME JE Administration Citalopram Hydrobromide 20 mg 12/14/19 09:00 12/15/19 09:20 Celexa PO 20 mg DAILY JE Administration Furosemide 20 mg 12/14/19 13:50 12/15/19 09:19 Lasix PO 20 mg DAILY@0800 JE Administration Iron Sucrose 200 mg/ Sodium 110 mls @ 220 mls/hr 12/14/19 14:30 12/15/19 11:09 Chloride IV 12/19/19 14:29 Infused DAILY JE Infusion Insulin Aspart 6 unit 12/13/19 15:00 12/15/19 14:10 Novolog SUBCUT 6 unit TID JE Administration Insulin Aspart 0 unit 12/13/19 18:00 12/15/19 17:06 Novolog SUBCUT 4 unit WM&BEDTIME JE Administration Protocol Metoprolol Tartrate 25 mg 12/13/19 18:00 12/15/19 17:07 Lopressor PO 25 mg BID JE Administration Non-Formulary Medication 18 unit 12/13/19 21:00 12/14/19 21:16 Insulin Glargine [Basaglar Kwikpen U-100 Insulin] SUBCUT Not Given BEDTIME JE Oxycodone HCl 10 mg 12/15/19 15:24 12/15/19 17:07 Oxycodone Ir PO 10 mg Q6H PRN Administration pain Pantoprazole Sodium 40 mg 12/14/19 07:45 12/15/19 09:18 Protonix IVP 40 mg Q12H JE Administration Polysaccharide Iron Complex 150 mg 12/14/19 08:00 12/15/19 17:07 Ferrex PO 150 mg BIDWM JE Administration Fluticasone/Salmeterol 1 puff 12/13/19 20:00 12/15/19 08:26 Advair Diskus 500-50 INHALATION 1 inhalation BID.RESPIRATORY JE Administration Tamsulosin HCl 0.4 mg 12/14/19 09:00 12/15/19 09:21 Flomax PO 0.4 mg DAILY JE Administration Tiotropium [place] 18 mcg 12/14/19 08:00 12/15/19 08:26 Spiriva INHALATION 18 mcg DAILY.RESPIRATORY JE Administration PFSH Acute PFSH: Medical History Adenocarcinoma COLON Anemia Aortic stenosis Arthritis Carcinoma of sigmoid colon Centrilobular emphysema DDD (degenerative disc disease) Diabetes Dyslipidemia Fracture of femur Fracture of fibula (~09/2019) HTN (hypertension) Tobacco abuse, in remission Surgical History History of colon resection History of colonoscopy with polypectomy Family History Denies family history of Anesthesia complication Bleeding disorder Social History Smoking and tobacco status: never smoked Second hand smoke exposure: No Alcohol intake: never Adopted: No Caregiver/support person: Yes Lives independently: No Household members: none Housing: Assisted Living Facility Marital status: / Highest education level completed: High School Graduate service: No Current occupational status: disabled Current occupational exposures/hazards: No Pets and animals: No History of recent travel: No Sexually active: No Current gender identity: Female Unique/Yarsani: Anabaptism Special unique needs: No Agree to transfusion: No Financial difficulty paying for basics: Decline to Answer Vitals/I&O/Wt Last Vital Signs Temp 99.2 F 12/15/19 15:33 Pulse 79 12/15/19 15:33 Resp 18 12/15/19 17:07 BP 122/63 12/15/19 15:33 Pulse Ox 97 12/15/19 15:33 12/15/19 12/15/19 12/15/19 06:59 14:59 22:59 Intake Total 120 / 1656 820 / 820 Output Total 400 / 2400 400 / 400 Balance -280 / -744 420 / 420 Weight last 48 hrs Weight 179 lb 6.4 oz Physical Exam Narrative: EXAM NARRATIVE: HEENT: Normocephalic Eye: Sclera /conjunctiva normal Respiratory and chest: Bilateral clear breath sounds on auscultation Cardiovascular: Normal S1 and S2 heart sounds Abdomen: Soft to palpation, nondistended, nontender, well-healed midline laparotomy scar Neurological: Oriented to place person and time Skin: Intact, no lesions appreciated on gross exam Data Micro: Micro: Microbiology 12/14/19 20:49 Occult Blood (FIT) - Final Stool A&P Assessment and plan (1) Anemia: 74-year-old female with multiple comorbidities including severe aortic stenosis who was noted to have a mass in the transverse colon on prior colonoscopy couple of months ago. The pathology showed tubulovillous adenoma and CT scan did not show any colonic mass or evidence of metastatic disease. I will discuss the case with Dr. Robertson, at this point we know that the patient has a mass in the colon and a repeat colonoscopy would only confirm that. Patient wants to go up to [place] for her care and I suspect that she would get a second colonoscopy in [place] even if one is performed here tomorrow. If there is a known mass as per the prior colonoscopy then that would be the most likely source of her anemia. We will therefore arrange to see if patient can go up to [place]. If that is not an option then we will plan for colonoscopy. Status: Acute Coding Level of Care Code Acute Pneumatic Jack Operator for Poncho Velazquez Diagnoses Anemia D64.9
--- NOTE | 2019-12-15 18:01 | P.TS_ITS ---
Transfer Summary Providers Date of Admission: 12/13/19 08:54 Date of Discharge: 12/15/19 Attending Provider at Admission: Eleazar Duenas MD Attending Provider at Transfer: Leon Robertson MD Primary Care Provider: Ziyad Esparza DO Anticipated Date of Transfer: Anticipated date of transfer: 12/15/19 Receiving Facility & Provider: Receiving Provider: [] Receiving facility: [] Diagnoses at Discharge Discharge Diagnosis (1) Anemia: Status: Acute Problem details: Hemoglobin decreased to 7.3 and required transfusion. Hemoglobin increased to 8.5 following this. Stool heme-negative here, but patient with history of anemia, with bright red blood per rectum in September. Endoscopy by Dr Vázquez demonstrated colon mass transverse colon and surgeon requested referral to [facility] for GI evaluation for resection. Reason for Visit Reason for Visit: Reason For Visit: HYPERCAPNIC RESP FAILURE, CHF Hospital Course Hospital Course: Patient presented to the hospital with shortness of breath. She was found to be in acute hypercapnic respiratory failure and required BiPAP for a short time. This was thought to be secondary to a combination of her severe aortic stenosis, and significant anemia. While in the hospital her hemoglobin drifted down to 7.3 the following day of admission and required trans fusion of 1 unit of packed red blood cells. She had a past history of anemia, dating back for quite some time. She was diagnosed with colon cancer in June and received left-sided colon resection at [facility] with details unclear. Apparently she was told she did not need any chemotherapy at that time. In September she re-presented here with bright red blood per rectum and eventually received a colonoscopy demonstrating transverse colon mass, showing tubulovillous adenoma on biopsy. It was not thought that this could be removed here, so she was referred at that time by Dr. Kramer to [facility] GI. In the interim she had further investigation of her aortic valve in October and received a referral for potential TAVR to [facility] cardiology after an angiogram done here by Dr. Louie demonstrated no coronary obstructive disease. During this hospital stay besides receiving a blood transfusion all anticoagulation was held. Troponin testing was done and delta was significant but it was thought to be secondary to type II as she had had a recent negative coronary angiogram. Secondary to breathing difficulties a Covid 19 was also done which was negative along with influenza testing. Abdominal pelvis CT was also done demonstrating no significant findings other than small bilateral effusions, and a left ovarian cyst slightly larger in size than previous CT. Surgery consultation was obtained this visit as well, and they believed transfer to [facility] for evaluation of abnormal colonoscopy findings given her significant anemia was appropriate. Of note although her stool was heme-positive in the past it was heme-negative this visit. The patient as well requested transfer to [facility] for work-up of her significant anemia and abnormality noted on endoscopy in September. She was also concerned that she would need a TAVR quickly. I discussed with her in detail that it would be unlikely that a TAVR procedure would be done on her emergently in [place]. Physical Exam Narrative: EXAM NARRATIVE: General exam is no apparent distress Cardiovascular regular rate and rhythm with a 3/6 systolic murmur Lungs clear Abdomen is soft with positive bowel sounds Extremities no cyanosis clubbing or edema TS Data Data Completed and Pending: Completed Studies During Hospitalization Category Date Time Status CT abdomen pelvis w con* [id number] Rout ine Cat Scan 12/14/19 17:25 Completed XR chest 1V yaritza ble [id number] Stat Exams 12/13/19 07:06 Completed Pending at discharge Category Date Time Status Blood Culture Sta t Lab 12/13/19 07:40 Results Complete Blood Co unt w/Auto AM LABS Lab 12/16/19 04:00 Ordered Comprehensive Met abolic Panel AM LA BS Lab 12/16/19 04:00 Ordered Leukocyte Reduced RBC Stat Lab 12/14/19 17:30 Results Retype for XM Sta t Lab 12/14/19 17:30 Results Type and Screen S tat Lab 12/14/19 17:30 Results Labs from last 24 hours 12/15/19 12/15/19 12/15/19 11:45 06:27 04:37 WBC 7.3 RBC 3.72 L Hgb 8.5 L Hct 29.8 L MCV 80.1 L MCH 22.8 L MCHC 28.5 L RDW 16.3 H Plt Count 295 MPV 11.1 H Neut % (Auto) 71.6 Lymph % (Auto) 18.7 [place] % (Auto) 8.3 Eos % (Auto) 0.7 Baso % (Auto) 0.4 Neut # (Auto) 5.2 Lymph # (Auto) 1.4 [place] # (Auto) 0.6 Eos # (Auto) 0.1 Baso # (Auto) 0.0 Nucleated RBC % (a uto) 0 Nucleated RBCs # 0.0 Sodium Potassium Chloride Carbon Dioxide Anion Gap BUN Creatinine Glucose POC Glucose 135 115 Calculated Osmolal ity Calcium Total Bilirubin AST ALT Alkaline Phosphata se Total Protein Albumin Globulin Blood Type Rho(D) Type Antibody Screen Crossmatch 12/15/19 12/14/19 12/14/19 04:37 20:26 17:30 WBC RBC Hgb Hct MCV MCH MCHC RDW Plt Count MPV Neut % (Auto) Lymph % (Auto) [place] % (Auto) Eos % (Auto) Baso % (Auto) Neut # (Auto) Lymph # (Auto) [place] # (Auto) Eos # (Auto) Baso # (Auto) Nucleated RBC % (a uto) Nucleated RBCs # Sodium 142 Potassium 3.6 Chloride 100 Carbon Dioxide 30 H Anion Gap 15.6 BUN 18 Creatinine 0.6 Glucose 115 POC Glucose 162 Calculated Osmolal ity 291 Calcium 9.2 Total Bilirubin 0.4 AST 12 ALT 12 Alkaline Phosphata se 84 Total Protein 6.6 Albumin 3.7 Globulin 2.9 Blood Type O Negative Rho(D) Type Negaive Antibody Screen Negative Crossmatch See Detail Vitals: Last Vital Signs Temp 99.2 F 12/15/19 15:33 Pulse 79 12/15/19 15:33 Resp 18 12/15/19 17:07 BP 122/63 12/15/19 15:33 Pulse Ox 97 12/15/19 15:33 TS Medications Medications Home Medications Crestor 20 mg PO BEDTIME 09/13/19 [History Confirmed 12/13/19] Stiolto Respimat 2 inh INHALATION DAILY 09/13/19 [History Confirmed 12/13/19] citalopram 20 mg PO DAILY 09/13/19 [History Confirmed 12/13/19] cyclobenzaprine 5 mg PO Q8H PRN 09/13/19 [History Confirmed 12/13/19] multivitamin 1 tab PO DAILY 09/13/19 [History Confirmed 12/13/19] ondansetron HCl [Zofran] 4 mg PO Q6H PRN 09/13/19 [History Confirmed 12/13/19] oxycodone 5 - 10 mg PO Q6H 09/13/19 [History Confirmed 12/13/19] potassium chloride 20 meq PO DAILY 09/13/19 [History Confirmed 12/13/19] dapagliflozin 5 mg tablet 5 mg PO DAILY 10/01/19 [History Confirmed 12/13/19] furosemide 20 mg tablet 20 mg PO DAILY tab 10/01/19 [History Confirmed 12/13/19] glipizide 5 mg tablet 2.5 mg PO DAILY 10/01/19 [History Confirmed 12/13/19] insulin aspart U-100 100 unit/mL (3 mL) subcutaneous pen See Rx Instructions .ROUTE .COMPLEX ml 10/01/19 [History Confirmed 12/13/19] insulin glargine 100 unit/mL (3 mL) subcutaneous pen 18 unit SUBCUT BEDTIME ml 10/01/19 [History Confirmed 12/13/19] metoprolol tartrate 25 mg tablet 25 mg PO BID tab 10/01/19 [History Confirmed 12/13/19] pantoprazole 40 mg tablet,delayed release 40 mg PO BID 10/01/19 [History Confirmed 12/13/19] tamsulosin 0.4 mg capsule 0.4 mg PO DAILY 10/01/19 [History Confirmed 12/13/19] albuterol sulfate 2 inh INHALATION Q6H PRN #8 gm 10/17/19 [Rx Confirmed 12/13/19] polyethylene glycol 3350 [Miralax] 17 g PO BID PRN 11/09/19 [History Confirmed 12/13/19] Lactobacillus rhamnosus GG [Culturelle] 1 cap PO DAILY PRN 12/13/19 [History Confirmed 12/13/19] acetaminophen [Tylenol] 650 mg PO Q6H PRN 12/13/19 [History Confirmed 12/13/19] bisacodyl 10 mg NJ DAILY PRN 12/13/19 [History Confirmed 12/13/19] diphenhydramine HCl [Benadryl] 25 mg PO Q6H PRN 12/13/19 [History Confirmed 12/13/19] insulin aspart U-100 [Novolog Flexpen U-100 Insulin] 6 unit SUBCUT TID 12/13/19 [History Confirmed 12/13/19] magnesium hydroxide [Milk of Magnesia] 30 ml PO DAILY PRN 12/13/19 [History Confirmed 12/13/19] sodium phosphates [Fleet Enema] 118 ml NJ DAILY PRN 12/13/19 [History Confirmed 12/13/19] Active Medications Atorvastatin Calcium (Lipitor) 80 mg PO BEDTIME [facility] Last Admin: 12/14/19 21:26 Dose: 80 mg Documented by: Bisacodyl (Bisac-Evac) 10 mg NJ DAILY PRN PRN Reason: Constipation Citalopram Hydrobromide (Celexa) 20 mg PO DAILY [facility] Last Admin: 12/15/19 09:20 Dose: 20 mg Documented by: Cyclobenzaprine HCl (Flexeril) 5 mg PO Q8H PRN PRN Reason: Muscle Spasm Dextrose (D50w) 25 ml IVP ONCE PRN; Protocol PRN Reason: hypoglycemia protocol Dextrose (D50w) 50 ml IVP PRN PRN; Protocol PRN Reason: hypoglycemia protocol Furosemide (Lasix) 20 mg PO DAILY@0800 [facility] Last Admin: 12/15/19 09:19 Dose: 20 mg Documented by: Glucagon (Glucagen) 1 mg IM ONCE PRN; Protocol PRN Reason: Adult Acute Hypoglycemia Prot. Dextrose (D5w) 500 mls @ 100 mls/hr IV ONCE PRN; Protocol PRN Reason: Adult Acute Hypoglycemia Prot Iron Sucrose 200 mg/ Sodium (Chloride) 110 mls @ 220 mls/hr IV DAILY [facility] Stop: 12/19/19 14:29 Last Infusion: 12/15/19 11:09 Dose: Infused Documented by: Insulin Aspart (Novolog) 6 unit SUBCUT TID [facility] Last Admin: 12/15/19 14:10 Dose: 6 unit Documented by: Insulin Aspart (Novolog) 0 unit SUBCUT WM&BEDTIME [facility]; Protocol Last Admin: 12/15/19 17:06 Dose: 4 unit Documented by: Lactulose (Constulose) 10 gm PO DAILY PRN PRN Reason: CONSTIPA Metoprolol Tartrate (Lopressor) 25 mg PO BID [facility] Last Admin: 12/15/19 17:07 Dose: 25 mg Documented by: Non-Formulary Medication (Insulin Glargine [Basaglar Kwikpen U-100 Insulin]) 18 unit SUBCUT BEDTIME [facility] Last Admin: 12/14/19 21:16 Dose: Not Given Documented by: Ondansetron HCl (Zofran) 4 mg IVP Q6H PRN PRN Reason: NAUSEA AND VOMITING Oxycodone HCl (Oxycodone Ir) 10 mg PO Q6H PRN PRN Reason: pain Last Admin: 12/15/19 17:07 Dose: 10 mg Documented by: Pantoprazole Sodium (Protonix) 40 mg IVP Q12H [facility] Last Admin: 12/15/19 09:18 Dose: 40 mg Documented by: Polysaccharide Iron Complex (Ferrex) 150 mg PO BIDWM [facility] Last Admin: 12/15/19 17:07 Dose: 150 mg Documented by: Fluticasone/Salmeterol (Advair Diskus 500-50) 1 puff INHALATION BID.RESPIRATORY [facility] Last Admin: 12/15/19 08:26 Dose: 1 inhalation Documented by: Tamsulosin HCl (Flomax) 0.4 mg PO DAILY [facility] Last Admin: 12/15/19 09:21 Dose: 0.4 mg Documented by: Tiotropium [place] (Spiriva) 18 mcg INHALATION DAILY.RESPIRATORY [facility] Last Admin: 12/15/19 08:26 Dose: 18 mcg Documented by: Discharge Plan Discharge Patient Disposition: Home, Self-Care Condition: Stable Prescriptions: No Action pantoprazole 40 mg tablet,delayed release (DR/EC) 40 mg PO BID RF: 0 Farxiga 5 mg tablet 5 mg PO DAILY RF: 0 glipizide 5 mg tablet 2.5 mg PO DAILY RF: 0 tamsulosin [Flomax] 0.4 mg capsule 0.4 mg PO DAILY RF: 0 Basaglar KwikPen U-100 Insulin 100 unit/mL (3 mL) insulin pen 18 unit SUBCUT BEDTIME RF: 0 Crestor 20 mg 20 mg PO BEDTIME RF: 0 multivitamin 1 tab PO DAILY RF: 0 citalopram 20 mg tablet 20 mg PO DAILY RF: 0 ondansetron HCl [Zofran] 4 mg Tablet 4 mg PO Q6H PRN (Reason: Nausea) RF: 0 oxycodone 5 mg tablet 5 - 10 mg PO Q6H RF: 0 cyclobenzaprine 5 mg tablet 5 mg PO Q8H PRN (Reason: Muscle Spasm) RF: 0 Stiolto Respimat 2.5-2.5 mcg/actuation mist 2 inh INHALATION DAILY RF: 0 potassium chloride 20 mEq tablet,ER particles/crystals 20 meq PO DAILY RF: 0 furosemide 20 mg tablet 20 mg PO DAILY RF: 0 Novolog Flexpen U-100 Insulin 100 unit/mL (3 mL) insulin pen See Rx Instructions .ROUTE .COMPLEX RF: 0 metoprolol tartrate 25 mg tablet 25 mg PO BID RF: 0 albuterol sulfate 90 mcg/actuation HFA aerosol inhaler 2 inh INHALATION Q6H PRN (Reason: shortness of breath) Qty: 8 RF: 0 polyethylene glycol 3350 [Miralax] 17 gram Powder In Packet 17 g PO BID PRN (Reason: Constipation) RF: 0 Milk of Magnesia 400 mg/5 mL Suspension 30 ml PO DAILY PRN (Reason: Constipation) RF: 0 bisacodyl 10 mg Suppository 10 mg NJ DAILY PRN (Reason: Constipation) RF: 0 Benadryl 25 mg Capsule 25 mg PO Q6H PRN (Reason: UNKNOWN) RF: 0 Fleet Enema 19-7 gram/118 mL Enema 118 ml NJ DAILY PRN (Reason: Constipation) RF: 0 Culturelle 10 billion cell Capsule 1 cap PO DAILY PRN (Reason: UNKNOWN) RF: 0 Novolog Flexpen U-100 Insulin 100 unit/mL (3 mL) Insulin Pen 6 unit SUBCUT TID RF: 0 Tylenol 325 mg Capsule 650 mg PO Q6H PRN (Reason: Pain) RF: 0 Discharge Orders: Transfer Out of Facility (Order); Ordered 12/15/19 Ordered By: Leon Robertson Referrals: Ziyad Esparza DO [Primary Care Provider] - Transfer Attestations Time Spent in Transfer Care*: greater than 30 min Quality Metrics Clinical Quality Measures: During this hospital stay, did patient experience: None Coding Level of Care Code Acute Scientific Editor for Chg Fwd Diagnoses Anemia D64.9
[2019-12-15] MEDS: atorvastatin 40 mg Tablet 80 MG PO (20:19)
[2019-12-15 22:11] LABS: Glucose Point of Care 229 mg/dL (70-110)
[2019-12-15 22:13] LABS: Glucose Point of Care 148 mg/dL (70-110)
== END 2019-12-15 21:00 | disposition short-term general hospital (02) | DRG 811 ==
LOC: ER 10:33 → CSU 12-14 09:11 → MEDSURG 12-14 14:07
PROVIDERS: Admitting Provider Student in an Organized Health Care Education/Training Program; Emergency Provider Family Medicine; Family Provider Internal Medicine; PCP Internal Medicine; Visit Provider Internal Medicine
DX: D64.9 Anemia, unspecified (principal); J96.02 Acute respiratory failure with hypercapnia; I50.33 Acute on chronic diastolic (congestive) heart failure; C18.7 Malignant neoplasm of sigmoid colon; I11.0 Hypertensive heart disease with heart failure; J43.2 Centrilobular emphysema; Z99.81 Dependence on supplemental oxygen; E11.9 Type 2 diabetes mellitus without complications; Z79.4 Long term (current) use of insulin; I35.0 Nonrheumatic aortic (valve) stenosis; Z90.49 Acquired absence of other specified parts of digestive tract; E78.5 Hyperlipidemia, unspecified; D12.3 Benign neoplasm of transverse colon; Z79.51 Long term (current) use of inhaled steroids; Z79.891 Long term (current) use of opiate analgesic
CPT/HCPCS: 12345; 36415; 36416; 36430; 36600; 71045; 74177; 80051; 80053; 81001; 82274; 82728; 82810; 82962; 83540; 83550; 83605; 83615; 83735; 83880; 83986; 84145; 84443; 84484; 85014; 85018; 85025; 85378; 86140; 86850; 86900; 86920; 87040; 87635; 87641; 87804; 93005; 94640; 94660; 94664; 96372; 96375; 97110; 97161; 99283; C9113; J1644; J1756; J1815; J1940; J2930; P9016; Q9967

== ENCOUNTER 2020-01-06 10:43 | Outpatient (CLI) | payer MEDICARE, OTHER, SELFPAY ==
[2020-01-06 11:00] LABS: Basophils % 0.5 %; Eosinophils # 0.1 10^3/uL (0.0-0.8); Eosinophils % 2.3 %; Hematocrit 29.1 % (37.0-47.0); Hemoglobin 8.1 g/dL (11.5-15.3); Lymphocytes # 0.7 10^3/uL (0.8-4.8); Lymphocytes % 16.7 %; Mean Corpuscular HGB Conc 27.8 g/dL (30.0-36.0); Mean Corpuscular Hemoglobin 23.7 pg (28.0-34.0); Mean Corpuscular Volume 85.1 fL (81-99); Mean Platelet Volume 11.2 fL (7.4-10.4); Monocytes # 0.4 10^3/uL (0.2-0.9); Neutrophils # 2.7 10^3/uL (1.8-7.7); Neutrophils % 70.2 %; Nucleated Red Blood Cells % 0 %; Platelet Count 258 10^3/cmm (130-400); Red Blood Count 3.42 10^6/uL (4.1-5.3); Red Cell Distribution Width 19.9 % (12.1-15.1); White Blood Count 3.9 10^3/uL (4.0-10.0)
[2020-01-06 11:39] LABS: Anion Gap 13.4 (5-19); Blood Urea Nitrogen 12 mg/dL (8-23); Calcium 8.2 mg/dL (8.5-10.5); Carbon Dioxide 29 mmol/L (22-29); Chloride 101 mmol/L (98-107); Glucose 210 mg/dL (65-115); Osmolality Calculated 290 mOsm/kg (285-295); Potassium 4.4 mmol/L (3.5-5.1); Sodium 139 mmol/L (136-145)
== END 2020-01-06 10:44 | disposition home or self-care (01) ==
PROVIDERS: PCP Internal Medicine; Visit Provider Internal Medicine
DX: D64.9 Anemia, unspecified (principal)
CPT/HCPCS: 80048; 85025

== ENCOUNTER 2020-03-16 06:45 | Outpatient (CLI) | payer MEDICARE, OTHER, SELFPAY ==
--- NOTE | 2020-03-16 07:04 | CT_ITS ---
WS: [id number] CTA NECK TECHNIQUE: Contrast enhanced CTA of the neck with coronal and sagittal reformatted images and maximum intensity projection (MIP) images. NASCET criteria utilized. CLINICAL INFORMATION: AORTIC VALVE STENOSIS COMPARISON: None. DLP: 1298.[address] scans at [facility] use at least one of these dose optimization techniques: automat ed exposure control; mA and/or kV adjustment per patient size (includes targeted exams where dose is matched to clinical indication); or iterative reconstruction. FINDINGS: RIGHT: Right common carotid artery is patent. Moderate calcified atheromatous disease right carotid b ulb extending into the ICA. No significant right ICA stenosis. Right ICA is patent to the skull base. Tortuous cervical ICA. LEFT: Left common carotid artery is patent. Moderate calcified atheromatous disease left carotid bulb extending into the ICA. No significant left ICA stenosis. Tortuous left cervical ICA. Left ICA is pa tent to the skull base. Both vertebral arteries are patent. Codominant vertebral arteries bilaterally. Basilar artery is juarez nt. Paranasal sinuses and mastoid air cells well aerated. Normal posterior fossa. Normal posterior nasoph arynx. Normal parapharyngeal fat. Salivary glands are normal. Small right thyroid nodule measuring [address]/CT angio neck [id number] IMPRESSION: 1. Moderate calcified atheromatous disease both carotid bulbs extending into t he ICA. Less than 50% stenosis bilaterally. 2. Codominant and patent vertebral arteries bilaterally. Proximal basilar renan ry is patent.. 3. Small right thyroid nodule measuring 5 mm.
--- NOTE | 2020-03-16 07:06 | USCV_ITS ---
Pratima Beckford Age: 74 Gender: F : 1945 Exam Date: 03/16/2020 09:06 Ordering Phys: Shad Swann MD ([email or web address]) Technologist: Carolyn Luevano [place] [facility] [place]: AORTIC VALVE STENOSIS Risk Factors: Unknown Previous Vascular Surgery: None Right Brachial BP: / Left Brachial BP: / Right Left Velocity (cm/s) Spectral Plaque Velocity (cm/s) Spectral Plaque Syst/Diast Broadening Syst/Diast Broadening 91.50/ 13.20 Prox CCA 78.30 / 15.40 87.10/ 14.30 Mid CCA 72.80 / 13.20 70.60/ 14.30 Hetro Distal CCA 65.10 / 15.40 Hetro 65.70/ 17.10 Hetro Prox ICA 50.00 / 18.40 Hetro 78.90/ 26.30 Mid ICA 107.20/ 34.20 115.70/38.10 Distal ICA 133.60/ 38.80 94.80 Hetro ECA 122.30 1.64 ICA/CCA 2.05 Antegrade Vertebral Antegrade 59.80/ 14.80 cm/s 76.10/ 20.20 cm/s Bi Subclavian Bi 105.6 85.40 0 CONCLUSIONS Right ICA stenosis <50%. Moderate atheromatous plaque right carotid bulb/ICA. Left ICA stenosis <50%. Moderate atheromatous plaque left carotid bulb/ICA. Normal antegrade Doppler flow noted in the right vertebral artery. Normal antegrade Doppler flow noted in the left vertebral artery. Slade Joseph MD (Electronically Signed) Final Date: 16 March 2020 10:28 S
[2020-03-16 08:22] LABS: Blood Urea Nitrogen 13 mg/dL (8-23)
[2020-03-16] MEDS: iohexol 350 mg/mL 100 mL Btl IV (09:01)
--- NOTE | 2020-03-16 14:05 | PFTS_ITS ---
Date of Study:03/16/20 Date of Dictation: MECHANICS: Forced vital capacity (FVC) is reduced. Forced expiratory volume in one second (FEV1) is reduced. FEV1/FVC is reduced. FLOW VOLUME LOOP: Reduced flow at all lung volumes with significant scooping. LUNG VOLUMES: Total lung capacity (TLC) is normal. Residual volume (RV) is normal. DIFFUSING CAPACITY FOR CARBON MONOXIDE: Moderately reduced. INTERPRETATION: The pulmonary function tests are consistent with moderate obstruction. There is significant postbronchodilator response. Lung volumes are normal. Gas exchange (DLCO) is moderately reduced. MTDD
== END 2020-03-16 06:46 | disposition home or self-care (01) ==
PROVIDERS: PCP Internal Medicine; Visit Provider Internal Medicine Cardiovascular Disease
DX: I35.0 Nonrheumatic aortic (valve) stenosis (principal); Z01.810 Encounter for preprocedural cardiovascular examination; I65.23 Occlusion and stenosis of bilateral carotid arteries; I67.2 Cerebral atherosclerosis; E04.1 Nontoxic single thyroid nodule
CPT/HCPCS: 70498; 82565; 84520; 93880; 94060; 94726; 94729; J7611

== ENCOUNTER 2020-08-24 14:44 | Outpatient (CLI) | payer OTHER, SELFPAY ==
[2020-08-24 15:09] LABS: Basophils # 0.1 10^3/uL (0.0-0.1); Basophils % 0.7 %; Eosinophils # 0.1 10^3/uL (0.0-0.8); Eosinophils % 1.1 %; Hematocrit 29.3 % (37.0-47.0); Hemoglobin 8.5 g/dL (11.5-15.3); Lymphocytes # 1.1 10^3/uL (0.8-4.8); Lymphocytes % 15.2 %; Mean Corpuscular Volume 86.2 fL (81-99); Mean Platelet Volume 11.2 fL (7.4-10.4); Monocytes # 0.6 10^3/uL (0.2-0.9); Monocytes % 8.1 %; Neutrophils # 5.48 10^3/uL (1.8-7.7); Neutrophils % 74.4 %; Nucleated Red Blood Cells % 0 %; Platelet Count 314 10^3/cmm (130-400); Red Cell Distribution Width 14.7 % (12.1-15.1); White Blood Count 7.4 10^3/uL (4.0-10.0)
[2020-08-24 15:51] LABS: Anion Gap 10.2 (5-19); Blood Urea Nitrogen 19 mg/dL (8-23); Calcium 8.3 mg/dL (8.5-10.5); Carbon Dioxide 28 mmol/L (22-29); Chloride 102 mmol/L (98-107); Glucose 260 mg/dL (65-115); Osmolality Calculated 293 mOsm/kg (285-295); Potassium 4.2 mmol/L (3.5-5.1); Sodium 136 mmol/L (136-145)
== END 2020-08-24 14:45 | disposition home or self-care (01) ==
PROVIDERS: PCP Internal Medicine; Visit Provider Internal Medicine
DX: D64.9 Anemia, unspecified (principal); I10 Essential (primary) hypertension
CPT/HCPCS: 80048; 85025

== ENCOUNTER 2020-10-25 14:14 | Outpatient (CLI) | payer MEDICARE, OTHER, SELFPAY ==
[2020-10-23 10:09] LABS: Blood Urea Nitrogen 9 mg/dL (8-23)
--- NOTE | 2020-10-25 14:16 | CT_ITS ---
WS: [id number] CTA ABDOMEN PELVIS TECHNIQUE: Noncontrast plus contrast enhanced CTA of the abdominal aorta with coronal and sagittal re formatted images and additional MIP Images. CLINICAL INFORMATION: ABDOMINAL AORTIC ANEURYSM COMPARISON: December 14, 2019, , November 30, 2018. DLP: 2337.[address] scans at [facility] use at least one of these dose optimization techniques: automat ed exposure control; mA and/or kV adjustment per patient size (includes targeted exams where dose is matched to clinical indication); or iterative reconstruction. FINDINGS: Postoperative changes aortic endograft with biiliac extension.Dense calcification at the o rigin of the celiac. 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 SMA is patent. Proximal mj l artery stents. Normal renal parenchymal enhancement. No evidence of endoleak on the delayed imaging . Prior postoperative changes partial colon resection. Prior hysterectomy. Prior postoperative changes left ROSITA. Intramedullary zak and cannulated screw fixation right hip. Pedicle screw fixation lower th oracic and upper lumbar spine with dorsal interconnecting rods. Lung bases are well aerated. Slight s ubsegmental atelectasis in the lung bases. Normal GE junction. Adrenal glands are normal. Normal mj l parenchymal enhancement. No hydronephrosis. Cholelithiasis. Sigmoid constipation. Left eccentric cystic adnexal lesion 3.4 x 2.5 CM unchanged. Mi ld compression superior endplate L4 vertebral body unchanged. IMPRESSION: 1. Aortic endograft with biiliac extension. No evidence of endoleak on the delayed imaging. Normal c aliber abdominal aorta. 2. Proximal renal arteries are patent with bilateral proximal renal ostial stent. Normal renal paren chymal enhancement. 3. Dense calcification at the origin of the celiac which remains patent. SMA is patent. 4. Cholelithiasis. 5. Sigmoid constipation. 6. Prior colon resections with sigmoid anastomosis and transverse colon anastomosis. 7. Other nonvascular findings described above.
[2020-10-25] MEDS: iohexol 350 mg/mL 100 mL Btl IV (15:34)
== END 2020-10-25 14:15 | disposition home or self-care (01) ==
PROVIDERS: PCP Internal Medicine; Visit Provider Nurse Practitioner Family
DX: I71.4 Abdominal aortic aneurysm, without rupture (principal); K63.89 Other specified diseases of intestine; K59.00 Constipation, unspecified; K80.20 Calculus of gallbladder without cholecystitis without obstruction
CPT/HCPCS: 36415; 74174; 82565; 84520

== ENCOUNTER 2021-04-26 14:48 | Outpatient (CLI) | payer MEDICARE, OTHER, SELFPAY ==
--- NOTE | 2021-04-26 15:15 | USCV_ITS ---
Pratima Beckford Age: 75 Gender: F : 1945 Exam Date: 04/26/2021 16:07 Ordering Phys: Shad Swann MD ([email or web address]) Technologist: Elías Jennings Exam Location: [facility] – [place] Indication: transcatheter ao valve replacement BP: 185 / 72 HR: 72 Rhythm: Sinus Technical Quality: Technically difficult study MEASUREMENTS (Male / Female) Normal Values 2D ECHO LV Diastolic Diameter PLAX 4.4 cm 4.2 - 5.9 / 3.9 - 5.3 cm LV Systolic Diameter PLAX 2.9 cm IVS Diastolic Thickness 1.2 cm 0.6 - 1.0 / 0.6 - 0.9 cm IVS Systolic Thickness 1.8 cm LVPW Diastolic Thickness 1.7 cm 0.6 - 1.0 / 0.6 - 0.9 cm LVPW Systolic Thickness 2.3 cm LVOT Diameter 2.1 cm LV Ejection Fraction 2D Teich 62.0 % LV Ejection Fraction MOD 2C 55.5 % LV Ejection Fraction 2C AL 55.7 % LA Diameter 4.5 cm LA Width 4.3 cm LA Height 5.9 cm RA Width 3.8 cm RA Height 4.6 cm Aorta at Sinotubular Diameter 2.8 cm DOPPLER AV Peak Velocity 258.7 cm/s LVOT Peak Velocity 122.0 cm/s AV Area Cont Eq vti 2.2 cm squared AV Area Cont Eq pk 1.6 cm squared MV Area PHT 2.4 cm squared Mitral E to A Ratio 0.6 MV E' Velocity 46.5 cm/s Mitral E to MV E' Ratio 10.9 Mitral E to LV E' Lateral Ratio 8.7 Mitral E to LV E' Septal Ratio 14.8 TR Peak Velocity 129.0 cm/s TR Peak Gradient 6.7 mmHg PV Peak Velocity 67.7 cm/s RV Acceleration Time 0.1 s RV Ejection Time 0.3 s RV AcT/ET 0.4 FINDINGS Left Ventricle This is technically very limited quality study. LV systolic function is grossly normal. Grade 1 diastolic dysfunction is seen. Right Ventricle Grossly normal in size and function Right Atrium Not well-visualized Left Atrium Grossly normal in size Mitral Valve Grossly normal Aortic Valve Not well-visualized. Bioprosthetic valve noted. No significant stenosis is noted. Mean gradient across the aortic valve is 9 mmHg. Tricuspid Valve Not well-visualized Pulmonic Valve Not visualized Pericardium Normal Aorta Normal in size CONCLUSIONS This is technically very limited quality echocardiogram because of poor ultrasonic windows. Grossly LV systolic function is normal. Grade 1 diastolic dysfunction. Aortic valve is not well visualized however there is a bioprosthetic aortic valve. Mean gradient across aortic valve is 9 mmHg. No significant stenosis. Compared to prior echocardiogram from 2019, aortic valve replacement has been performed with bioprosthetic valve. No significant gradient is noted Jamel Guevara MD (Electronically Signed) Final Date: 03 May 2021 14:08 S
== END 2021-04-26 14:49 | disposition home or self-care (01) ==
LOC: RAD 14:56
PROVIDERS: PCP Internal Medicine; Visit Provider Internal Medicine Cardiovascular Disease
DX: Z95.2 Presence of prosthetic heart valve (principal)
CPT/HCPCS: 93306

== ENCOUNTER 2021-11-13 14:20 | Outpatient (CLI) | payer MEDICARE, OTHER, SELFPAY ==
--- NOTE | 2021-11-13 14:34 | CTR_ITS ---
PROCEDURE INFORMATION: Exam: CTA Abdomen and Pelvis With Contrast Exam date and time: 11/13/2021 2:34 PM Age: 76 years old Clinical indication: Device placement; Other: Recheck aortic stents; Device: Other non-vascular device; Prior surgery; Patient HX: HX of colon cancer; Additional info: Aaa w/o rupture, mob TECHNIQUE: Imaging protocol: Computed tomographic angiography of the abdomen and pelvis with contrast material. 3D rendering (Not supervised by radiologist): MIP and/or 3D reconstructed images were created by the technologist. Radiation optimization: All CT scans at this facility use at least one of these dose optimization techniques: automated exposure control; mA and/or kV adjustment per patient size (includes targeted exams where dose is matched to clinical indication); or iterative reconstruction. Contrast material: [id number]; Contrast volume: 95 ml; Contrast route: INTRAVENOUS (IV); COMPARISON: CT angio abdomen pelvis [id number] 10/25/2020 3:44 PM RADIATION DOSE METRICS: Total DLP (mGy-cm): 2708.6 FINDINGS: Lungs: Left lower lobe 4.8 mm pulmonary mass partially visualized likely reflecting metastatic disease, not previously seen. Right lower lobe atelectasis versus infiltrate. Aorta: Aortobifemoral stent seen in place and appears patent without acute abnormality. Celiac trunk and mesenteric arteries: Celiac artery eccentric atherosclerotic calcification with up to approximately 50% lumen narrowing. Renal arteries: No occlusion or significant stenosis. Right iliac arteries: No occlusion or significant stenosis. Left iliac arteries: No occlusion or significant stenosis. Liver: No mass. Gallbladder and bile ducts: Cholelithiasis with suspected choledocholithiasis, negative for inflammation seen about the gallbladder. Pancreas: Unremarkable. No mass. No ductal dilation. Spleen: Unremarkable. No splenomegaly. Adrenal glands: Left adrenal 11 mm nodule similar dating back to exam from 02/20/2016, stability suggests a benign etiology. Kidneys and ureters: Left kidney nonobstructive calyceal stone. Bilateral renal stents are seen in appear patent. Stomach and bowel: Constipation. Appendix: No evidence of appendicitis. Intraperitoneal space: Unremarkable. No free air. No significant fluid collection. Lymph nodes: Unremarkable. No enlarged lymph nodes. Urinary bladder: Unremarkable. No mass. Reproductive: Left adnexal 3.7 cm cystic lesion, less prominent compared to prior exam without surrounding inflammation. Bones/joints: Lumbar spine surgical hardware with chronic appearing vertebroplasty changes and L4 compression fracture. Soft tissues: Unremarkable. CT/CT angio abdomen pelvis [id number] IMPRESSION: 1. Left lower lobe 4.8 mm pulmonary mass partially visualized likely reflecting metastatic disease, not previously seen. 2. Right lower lobe atelectasis versus infiltrate. 3. Left adrenal 11 mm nodule similar dating back to exam from 02/20/2016, stability suggests a benign etiology. 4. Left kidney nonobstructive calyceal stone. 5. Cholelithiasis with suspected choledocholithiasis, negative for inflammation seen about the gallbladder. 6. Constipation. 7. Left adnexal 3.7 cm cystic lesion, less prominent compared to prior exam without surrounding inflammation. 8. Aortobifemoral stent seen in place and appears patent without acute abnormality. 9. Bilateral renal stents are seen in appear patent. 10. Celiac artery eccentric atherosclerotic calcification with up to approximately 50% lumen narrowing.
[2021-11-13 16:16] LABS: Blood Urea Nitrogen 13 mg/dL (8-23)
[2021-11-13] MEDS: iohexol 350 mg/mL 100 mL Btl IV (16:20)
== END 2021-11-13 14:21 | disposition home or self-care (01) ==
LOC: RAD 14:22
PROVIDERS: PCP Internal Medicine; Visit Provider Nurse Practitioner Family
DX: I71.4 Abdominal aortic aneurysm, without rupture (principal); R91.8 Other nonspecific abnormal finding of lung field; E27.8 Other specified disorders of adrenal gland; N20.0 Calculus of kidney; K59.00 Constipation, unspecified
CPT/HCPCS: 74174; 82565; 84520

== ENCOUNTER → 2021-11-26 14:24 | Outpatient (BNVA) | payer MEDICARE, OTHER, SELFPAY | PROVIDERS: PCP Internal Medicine; Visit Provider Internal Medicine Cardiovascular Disease | DX: I73.9 Peripheral vascular disease, unspecified (principal); I11.0 Hypertensive heart disease with heart failure; I50.30 Unspecified diastolic (congestive) heart failure | CPT/HCPCS: 99215 ==

== ENCOUNTER → 2021-12-24 09:07 | Outpatient (BNVA) | payer MEDICARE, OTHER, SELFPAY | PROVIDERS: PCP Internal Medicine; Visit Provider Internal Medicine Critical Care Medicine | DX: R91.8 Other nonspecific abnormal finding of lung field (principal); C80.1 Malignant (primary) neoplasm, unspecified; J44.9 Chronic obstructive pulmonary disease, unspecified; Z95.3 Presence of xenogenic heart valve; Z87.891 Personal history of nicotine dependence; I10 Essential (primary) hypertension; E78.5 Hyperlipidemia, unspecified; E11.8 Type 2 diabetes mellitus with unspecified complications | CPT/HCPCS: 99204 ==

== ENCOUNTER 2022-03-17 07:12 | Emergency (ER) | payer OTHER, MEDICARE, SELFPAY ==
[2022-03-17] VITALS (7 sets, daily range): BP systolic 148–170; BP diastolic 67–94; PULSE 110–123; RESP 16–20; TEMP 36.4; O2SAT 94–98; BMI 27.3
--- NOTE | 2022-03-17 07:28 | XRR_ITS ---
PROCEDURE INFORMATION: Exam: XR Right Humerus Exam date and time: 03/17/2022 7:36 AM Age: 76 years old Clinical indication: Injury or trauma; Fall; Blunt trauma (contusions or hematomas); Arm, upper; Right TECHNIQUE: Imaging protocol: Radiologic exam of the Right humerus. Views: 2 or more views. AP and Lateral COMPARISON: CR XR chest 1V portable [id number] 12/13/2019 7:15 AM FINDINGS: Bones/joints: The 2 limited views of the right humerus show a comminuted right mid humeral diaphyseal fracture. There is a 1.5 x 6.4 cm butterfly fracture fragment seen. There is 1.7 cm lateral and 6 mm anterior displacement of the distal fracture fragment with 3.1 cm foreshortening. There is some fracture fragment rotation seen. The lateral view is limited. The limitedly visualized shoulder and elbow regions show mild degenerative changes. There is generalized osteopenia. Soft tissues: No radiopaque foreign bodies. Notes: Followup radiographs may be obtained for complete assessment. XR/[place] [id number] IMPRESSION: Comminuted, displaced right mid humeral diaphyseal fracture, as noted above
--- NOTE | 2022-03-17 07:28 | XRR_ITS ---
PROCEDURE INFORMATION: Exam: XR Right Wrist Exam date and time: 03/17/2022 7:36 AM Age: 76 years old Clinical indication: Injury or trauma; Fall; Blunt trauma (contusions or hematomas); Wrist; Right; Prior surgery TECHNIQUE: Imaging protocol: Radiologic exam of the Right wrist. Views: 3 or more views. Frontal Oblique Lateral COMPARISON: No relevant prior studies available. FINDINGS: Bones/joints: Postsurgical changes are seen status post compression plate and screw fixation of the right distal radial metaphyseal region. Deformity of the right ulnar styloid region is seen, suggestive of a old nonunited fracture. Recommend correlation with clinical history. There is normal alignment of the carpal bones. Cchx-ub-keakxadq midcarpal and radiocarpal joint space narrowing is seen, suggestive of osteoarthritic change. Moderate lvmddi-kdnrbrek-stycqmdrc degenerative changes are seen. Moderate carpometacarpal degenerative changes are seen. There is generalized osteopenia. Soft tissues: There is mild wrist region soft tissue swelling. There are no radio-opaque foreign bodies. Notes: If there is further concern, follow-up radiographs or MRI of the wrist may be performed for complete assessment. XR/XR wrist RT min 3V* [id number] IMPRESSION: No fractures or dislocations of the right wrist. Postsurgical and degenerative changes of the right wrist, as noted above. Generalized osteopenia. Mild wrist region soft tissue swelling.
--- NOTE | 2022-03-17 07:28 | XRR_ITS ---
PROCEDURE INFORMATION: Exam: XR Right Shoulder Exam date and time: 03/17/2022 7:36 AM Age: 76 years old Clinical indication: Injury or trauma; Fall; Blunt trauma (contusions or hematomas); Shoulder; Right TECHNIQUE: Imaging protocol: Radiologic exam of the Right shoulder. Views: 2 or more views. AP INT/ EXT ROTATION, SCAPULAR Y COMPARISON: CR XR chest 1V portable [id number] 12/13/2019 7:15 AM FINDINGS: Bones/joints: There is normal alignment at the glenohumeral joint. Moderate glenohumeral joint space narrowing is seen with small osteophytes, consistent with osteoarthritic change. Moderate to severe acromioclavicular degenerative changes are seen. There is generalized osteopenia. Comminuted, displaced and foreshortened right mid humeral diaphyseal fracture is once again seen with butterfly fracture fragment. Recommend correlation with humerus radiographs. There is no dislocation of the humeral head from the glenoid fossa. The visualized scapula and clavicle are unremarkable. Postsurgical changes of the visualized lower thoracic spine are seen. Soft tissues: There are no radiopaque foreign bodies. Notes: Followup radiographs may be obtained for complete assessment. XR/XR shoulder RT min 2V* [id number] IMPRESSION: 1. Comminuted, displaced right mid humeral diaphyseal fracture. Recommend correlation with humeral radiographs. Generalized osteopenia. 2. Degenerative changes of the right shoulder, as noted above. No dislocation.
--- NOTE | 2022-03-17 07:30 | W.ED.FALL ---
Documented by User: YULI Sheppard 03/17/22 11:04 HPI - Fall General: Chief Complaint: Fall Stated Complaint: fall Time Seen by Provider: 03/17/22 07:18 Source: patient Mode of arrival: EMS Limitations: no limitations History of Present Illness: Patient is a 76-year-old female presents to ED today via EMS from her residence of [facility] for evaluation following a fall. Patient tells me her fall was the result of stupidity . When asked to elaborate further she states that she was bending over getting something off of a cart and she somehow got tangled up in her walker and states it went one way and I went the other . She denies any lightheadedness, dizziness, palpitations, chest pain, or shortness of breath. She denies striking her head or LOC. She does not have any neck or back pain apart from some chronic mid back pains. Her main complaint is pain to her right humeral region. She did sustain a small laceration to her right palmar hand. Last tetanus unknown. PMH is significant for COPD normally on 3L continuous O2 via NC, HTN, what she refers to as terminal cancer on hospice care, aortic valve replacement, PAD, DM, hyperlipidemia. MD complaint: fall Onset (ago): hour(s) Fall from: standing Fall witnessed: no Place fall occurred: home Loss of consciousness: None Prolonged down time: no Symptoms prior to fall: none Context: tripped/slipped Location of injury - extremities: Right: shoulder and arm Associated symptoms-after fall: Reports no associated symptoms and difficulty walking (chronic); Denies abdominal pain, chest pain, headache(s), lightheadedness or neck pain Review of Systems Const: Denies: fever(s), chills, body aches, fatigue or malaise Eyes: Denies: change in vision or blurry vision Card: Reports: dyspnea on exertion (chronic); Denies: chest pain, palpitations, irregular heart rhythm, edema, swelling of feet/ankles, lightheadedness, syncope or pre-syncope Resp: Reports: dyspnea (chronic at baseline-normally wears 3L O2) GI: Denies: abdominal pain, vomiting or diarrhea : Denies: flank pain or dysuria Musc: Reports: extremity pain (R humerus); Denies: neck pain, back pain or joint pain Neuro: Reports: difficulty walking (chronic); Denies: headache(s), numbness in extremities, weakness in extremities, sensory changes or dizziness PFSH ED PFSH: Medical History Adenocarcinoma COLON Anemia Aortic stenosis Arthritis Carcinoma of sigmoid colon Centrilobular emphysema DDD (degenerative disc disease) Diabetes Dyslipidemia Fracture of femur Fracture of fibula (~09/2019) HTN (hypertension) Tobacco abuse, in remission Surgical History History of colon resection History of colonoscopy with polypectomy Family History Denies family history of Anesthesia complication Bleeding disorder Social History Smoking and tobacco status: former smoker Quit status (tobacco): has quit using tobacco Year quit tobacco: 2016 Former quit date comment: 1 ppd X 50 years Second hand smoke exposure: No Alcohol intake: never Adopted: No Caregiver/support person: Yes Lives independently: No Household members: none Housing: Assisted Living Facility Marital status: / Highest education level completed: High School Graduate service: No Current occupational status: disabled Current occupational exposures/hazards: No Pets and animals: No History of recent travel: No Sexually active: No Current gender identity: Female Unique/Mandaen: Caodaism Special unique needs: No Agree to transfusion: No Financial difficulty paying for basics: Decline to Answer Physical Exam Const: COMMON NORMALS: no acute distress, patient oriented x3, no limitations and alert GENERAL APPEARANCE: cooperative ORIENTATION/CONSCIOUSNESS: Yes awake, Yes oriented to person, Yes oriented to place and Yes oriented to time HENMT: COMMON NORMALS: normocephalic and atraumatic HEAD & SCALP: normal to inspection, normocephalic and atraumatic FACE & SINUS: normal facial exam Eye: GENERAL EYE: appearance normal, both eyes and all related structures Neck/C-Spine: COMMON NORMALS: full ROM GENERAL: Yes normal visual inspection CERVICAL SPINE: Yes cervical ROM normal, No pain with cervical ROM, No Cervical spine tenderness, No step off deformity and No Paracervical muscle tenderness Chest: COMMONS NORMALS: normal inspection of the chest and normal palpation of entire chest wall Resp: COMMON NORMALS: No retractions and No use of accessory muscles EFFORT & INSPECTION: Yes able to speak in complete sentences AUSCULTATION: rhonchi OTHER: patient with COPD/emphysema; normally wears 3L continuously; she is satting 95% on her normal oxygen currenlty Cardio: COMMON NORMALS: regular rhythm RATE: tachycardic RHYTHM: regular rhythm OTHER: patient states her HR has been running in the 120s for a few months now; she states her PCP Dr. Esparza is aware of this; most of the time I was in there she was in the low 100s GI: COMMON NORMALS: Normal to inspection, nondistended, normoactive bowel sounds present, Soft to palpation and non-tender PALPATION: Yes Soft to palpation : COMMON NORMALS: Yes no CVA tenderness BLADDER/KIDNEY EXAM: Yes no CVA tenderness Back/Pelvis: COMMON NORMALS: no CVA tenderness, thoracic and lumbar spine normal to inspection, no thoracic nor lumbar tenderness and thoraco-lumbar ROM normal Extremity: GENERAL: Yes normal exam except as noted RIGHT UPPER EXTREMITY: Yes upper arm (deformity and significant tenderness noted to R midshaft humerus) Right upper arm: Yes neurovascular exam (normal; no evidence for radial nerve injury) and Yes hand & digits (small 0.75cm laceration to proximal palmar hand) Right hand and digits: Yes neurovascular exam (normal) Neuro: ALLAN COMA SCALE: document GCS findings Allan coma scale eye opening: Spontaneous [place] coma scale verbal response: Orientated [place] coma scale motor response: Obey commands [place] coma scale total score: 15 COMMON NORMALS: patient oriented x3, moves all extremities, no focal motor deficits and no sensory deficits noted SENSORIUM/ORIENTATION: Yes alert, Yes oriented to person, Yes oriented to place and Yes oriented to time Course Consultations: Consultation #1: Dr. Mcgee-recommends coaptation splint and will see in office this week Vital Signs: Vital signs: Vital Signs Temperature 97.6 F 03/17/22 07:33 Pulse Rate 123 H 03/17/22 07:33 Respiratory Rate 16 03/17/22 10:52 Blood Pressure 153/74 03/17/22 07:33 Pulse Oximetry 94 03/17/22 10:52 MDM - Fall Medical Decision Making Patient is a 76-year-old female here following a mechanical fall. She does have comminuted displaced midshaft humeral fracture. Spoke with Dr. Mcgee in regards to the fracture and sent her images. She recommends we place in coaptation splint and she will see this week. Patient has known colon/lung cancer that she has opted not to treat. She is a hospice patient at [facility]. She uses a walker at all times for ambulation. We contacted [place] to make sure they had appropriate resources to care for patient as she will no longer be able to use a walker as her right upper extremity will be fixed. They stated because she is a hospice patient she does have access to more resources. They do have a wheelchair that she can use and they also will have staffing to help with ADLs. Remainder of patient's imaging here was negative apart from a new right lower lung nodule-radiologist did mention the possibility of a lung contusion however patient is not having any right chest wall/rib pain and I think this would be very unlikely given her clinical exam as well as the perfectly round lesion seen on the CXR. Patient is on fentanyl patches/10mg norco q 4 hrs at home. I think this should be adequate for pain control. Will place CM referral for ortho follow up. Case discussed with Dr. Ferguson who agrees with assessment/plan for patient. Lab Data Radiology Impressions Humerus X-Ray 03/17/22 07:28 IMPRESSION: Comminuted, displaced right mid humeral diaphyseal fracture, as noted above Shoulder X-Ray 03/17/22 07:28 IMPRESSION: 1. Comminuted, displaced right mid humeral diaphyseal fracture. Recommend correlation with humeral radiographs. Generalized osteopenia. 2. Degenerative changes of the right shoulder, as noted above. No dislocation. Wrist X-Ray 03/17/22 07:28 IMPRESSION: No fractures or dislocations of the right wrist. Postsurgical and degenerative changes of the right wrist, as noted above. Generalized osteopenia. Mild wrist region soft tissue swelling. Chest X-Ray 03/17/22 08:15 IMPRESSION: 1. Right lower lung zone round 3.7 x 3.7 cm opacity. This may represent a lung nodule/malignancy. Chest CT may be performed for further assessment. 2. Status post TAVR. Discharge Plan Discharge Patient Disposition: Home Clinical Impression: Closed fracture of shaft of right humerus Qualifiers: Encounter type: initial encounter Fracture morphology: comminuted Fracture alignment: displaced Qualified Code(s): S42.351A - Displaced comminuted fracture of shaft of humerus, right arm, initial encounter for closed fracture Condition: Stable Prescriptions: No Action pantoprazole 40 mg tablet,delayed release (DR/EC) 40 mg PO BID 0RF Basaglar KwikPen U-100 Insulin 100 unit/mL (3 mL) insulin pen 18 unit SUBCUT BEDTIME 0RF Label Comments: 1/2 dose last admin clopidogrel 75 mg tablet 75 mg PO DAILY 0RF bupropion HCl 150 mg tablet extended release 24 hr 150 mg PO QAM 0RF furosemide 20 mg tablet 40 mg PO DAILY 0RF morphine [MS Contin] 15 mg tablet extended release See Rx Instructions PO Q12H 0RF Rx Instructions: 10 mg PO every 12 hours; ferrous sulfate 325 mg (65 mg iron) tablet 325 mg PO DAILY 0RF amlodipine 10 mg tablet 10 mg PO DAILY Qty: 90 0RF losartan 100 mg tablet 100 mg PO DAILY Qty: 90 3RF metoprolol tartrate 25 mg tablet 50 mg PO BID 0RF Crestor 20 mg 20 mg PO BEDTIME 0RF multivitamin 1 tab PO DAILY 0RF citalopram 20 mg tablet 20 mg PO DAILY 0RF ondansetron HCl [Zofran] 4 mg Tablet 4 mg PO Q6H PRN (Reason: Nausea) 0RF cyclobenzaprine 5 mg tablet 5 mg PO Q8H PRN (Reason: Muscle Spasm) 0RF Stiolto Respimat 2.5-2.5 mcg/actuation mist 2 inh INHALATION DAILY 0RF Novolog Flexpen U-100 Insulin 100 unit/mL (3 mL) insulin pen See Rx Instructions .ROUTE .COMPLEX 0RF Rx Instructions: MILD SLIDING SCALE subcutaneously QID PER [facility] USES THIS WHEN SUGAR IS ABOVE 200 albuterol sulfate 90 mcg/actuation HFA aerosol inhaler 2 inh INHALATION Q6H PRN (Reason: shortness of breath) Qty: 8 0RF polyethylene glycol 3350 [Miralax] 17 gram Powder In Packet 17 g PO BID PRN (Reason: Constipation) 0RF Milk of Magnesia 400 mg/5 mL Suspension 30 ml PO DAILY PRN (Reason: Constipation) 0RF bisacodyl 10 mg Suppository 10 mg GA DAILY PRN (Reason: Constipation) 0RF Benadryl 25 mg Capsule 25 mg PO Q6H PRN (Reason: UNKNOWN) 0RF Fleet Enema 19-7 gram/118 mL Enema 118 ml GA DAILY PRN (Reason: Constipation) 0RF Culturelle 10 billion cell Capsule 1 cap PO DAILY PRN (Reason: UNKNOWN) 0RF Rx Instructions: WHEN ON ANTIBIOTICS Tylenol 325 mg Capsule 650 mg PO Q6H PRN (Reason: Pain) 0RF insulin aspart U-100 [Novolog Flexpen U-100 Insulin] 100 unit/mL (3 mL) insulin pen 25 unit SUBCUT TID 0RF Discharge Orders: Discharge ED (Routine); Ordered 03/17/22 Ordered By: Uyen Mcgill Referrals: Ziyad Esparza DO [Primary Care Provider] - Activity Restrictions/Additional Instructions: You need to stay in your splint/sling at all times until told otherwise by orthopedics. You may continue your prescribed Fentanyl and [place] for pain. Case management should contact you tomorrow (Friday at the latest) to set you up to see orthopedics this week. Coding Level of Care Code ED Gas Technician for Chg Fwd Exam Comprehensive Documented by User: Andres Ferguson DO 03/17/22 11:33 HPI - Fall General: Chief Complaint: Fall Stated Complaint: fall Time Seen by Provider: 03/17/22 07:18 PFSH ED PFSH: Medical History Adenocarcinoma COLON Anemia Aortic stenosis Arthritis Carcinoma of sigmoid colon Centrilobular emphysema DDD (degenerative disc disease) Diabetes Dyslipidemia Fracture of femur Fracture of fibula (~09/2019) HTN (hypertension) Tobacco abuse, in remission Surgical History History of colon resection History of colonoscopy with polypectomy Family History Denies family history of Anesthesia complication Bleeding disorder Social History Smoking and tobacco status: former smoker Quit status (tobacco): has quit using tobacco Year quit tobacco: 2017 Former quit date comment: 1 ppd X 50 years Second hand smoke exposure: No Alcohol intake: never Adopted: No Caregiver/support person: Yes Lives independently: No Household members: none Housing: Assisted Living Facility Marital status: / Highest education level completed: High School Graduate service: No Current occupational status: disabled Current occupational exposures/hazards: No Pets and animals: No History of recent travel: No Sexually active: No Current gender identity: Female Unique/Mandaen: Caodaism Special unique needs: No Agree to transfusion: No Financial difficulty paying for basics: Decline to Answer Physical Exam Neuro: ALLAN COMA SCALE: document GCS findings Allan coma scale total score: 15 Course ED course: I was the attending physician in the emergency department the time this patient was seen and managed by the advanced nurse practitioner. This case was reviewed and discussed with me in real-time and I reviewed the patient's images. This patient had a ground-level fall and has suffered a comminuted displaced fracture of her humerus. The orthopedic surgeon on-call was consulted and because of the concern about the patient's comorbidities felt that she was best managed with nonoperative means. The patient was placed on a call adaptive splint while in the emergency department is being discharged back to her domicile with planned orthopedic follow-up this coming week. I agree with the plan as outlined in his chart. Vital Signs: Vital signs: Vital Signs Temperature 97.6 F 03/17/22 07:33 Pulse Rate 123 H 03/17/22 07:33 Respiratory Rate 16 03/17/22 10:52 Blood Pressure 153/74 03/17/22 07:33 Pulse Oximetry 94 03/17/22 10:52 MDM - Fall Lab Data Radiology Impressions Humerus X-Ray 03/17/22 07:28 IMPRESSION: Comminuted, displaced right mid humeral diaphyseal fracture, as noted above Shoulder X-Ray 03/17/22 07:28 IMPRESSION: 1. Comminuted, displaced right mid humeral diaphyseal fracture. Recommend correlation with humeral radiographs. Generalized osteopenia. 2. Degenerative changes of the right shoulder, as noted above. No dislocation. Wrist X-Ray 03/17/22 07:28 IMPRESSION: No fractures or dislocations of the right wrist. Postsurgical and degenerative changes of the right wrist, as noted above. Generalized osteopenia. Mild wrist region soft tissue swelling. Chest X-Ray 03/17/22 08:15 IMPRESSION: 1. Right lower lung zone round 3.7 x 3.7 cm opacity. This may represent a lung nodule/malignancy. Chest CT may be performed for further assessment. 2. Status post TAVR. Discharge Plan Discharge Patient Disposition: Home Clinical Impression: Closed fracture of shaft of right humerus Qualifiers: Encounter type: initial encounter Fracture morphology: comminuted Fracture alignment: displaced Qualified Code(s): S42.351A - Displaced comminuted fracture of shaft of humerus, right arm, initial encounter for closed fracture Condition: Stable Prescriptions: No Action pantoprazole 40 mg tablet,delayed release (DR/EC) 40 mg PO BID 0RF Basaglar KwikPen U-100 Insulin 100 unit/mL (3 mL) insulin pen 18 unit SUBCUT BEDTIME 0RF Label Comments: 1/2 dose last admin clopidogrel 75 mg tablet 75 mg PO DAILY 0RF bupropion HCl 150 mg tablet extended release 24 hr 150 mg PO QAM 0RF furosemide 20 mg tablet 40 mg PO DAILY 0RF morphine [MS Contin] 15 mg tablet extended release See Rx Instructions PO Q12H 0RF Rx Instructions: 10 mg PO every 12 hours; ferrous sulfate 325 mg (65 mg iron) tablet 325 mg PO DAILY 0RF amlodipine 10 mg tablet 10 mg PO DAILY Qty: 90 0RF losartan 100 mg tablet 100 mg PO DAILY Qty: 90 3RF metoprolol tartrate 25 mg tablet 50 mg PO BID 0RF Crestor 20 mg 20 mg PO BEDTIME 0RF multivitamin 1 tab PO DAILY 0RF citalopram 20 mg tablet 20 mg PO DAILY 0RF ondansetron HCl [Zofran] 4 mg Tablet 4 mg PO Q6H PRN (Reason: Nausea) 0RF cyclobenzaprine 5 mg tablet 5 mg PO Q8H PRN (Reason: Muscle Spasm) 0RF Stiolto Respimat 2.5-2.5 mcg/actuation mist 2 inh INHALATION DAILY 0RF Novolog Flexpen U-100 Insulin 100 unit/mL (3 mL) insulin pen See Rx Instructions .ROUTE .COMPLEX 0RF Rx Instructions: MILD SLIDING SCALE subcutaneously QID PER [facility] USES THIS WHEN SUGAR IS ABOVE 200 albuterol sulfate 90 mcg/actuation HFA aerosol inhaler 2 inh INHALATION Q6H PRN (Reason: shortness of breath) Qty: 8 0RF polyethylene glycol 3350 [Miralax] 17 gram Powder In Packet 17 g PO BID PRN (Reason: Constipation) 0RF Milk of Magnesia 400 mg/5 mL Suspension 30 ml PO DAILY PRN (Reason: Constipation) 0RF bisacodyl 10 mg Suppository 10 mg GA DAILY PRN (Reason: Constipation) 0RF Benadryl 25 mg Capsule 25 mg PO Q6H PRN (Reason: UNKNOWN) 0RF Fleet Enema 19-7 gram/118 mL Enema 118 ml GA DAILY PRN (Reason: Constipation) 0RF Culturelle 10 billion cell Capsule 1 cap PO DAILY PRN (Reason: UNKNOWN) 0RF Rx Instructions: WHEN ON ANTIBIOTICS Tylenol 325 mg Capsule 650 mg PO Q6H PRN (Reason: Pain) 0RF insulin aspart U-100 [Novolog Flexpen U-100 Insulin] 100 unit/mL (3 mL) insulin pen 25 unit SUBCUT TID 0RF Discharge Orders: Discharge ED (Routine); Ordered 03/17/22 Ordered By: Uyen Mcgill Referrals: Ziyad Esparza DO [Primary Care Provider] - Activity Restrictions/Additional Instructions: You need to stay in your splint/sling at all times until told otherwise by orthopedics. You may continue your prescribed Fentanyl and [place] for pain. Case management should contact you tomorrow (Friday at the latest) to set you up to see orthopedics this week. Coding Level of Care Code ED Gas Technician for [place] Fwd Exam Comprehensive
--- NOTE | 2022-03-17 08:15 | XRR_ITS ---
PROCEDURE INFORMATION: Exam: XR Chest Exam date and time: 03/17/2022 8:31 AM Age: 76 years old Clinical indication: Injury or trauma; Fall; Blunt trauma (contusions or hematomas) TECHNIQUE: Imaging protocol: Radiologic exam of the chest. Views: 1 view. COMPARISON: CR XR chest 1V portable [id number] 12/13/2019 7:15 AM FINDINGS: Lungs: There are normal lung volumes. Age-related interstitial prominence is seen in the lungs. Right lower lung zone round 3.7 x 3.7 cm opacity is seen. This is new in correlation with the prior chest radiograph dated 12/13/2019. This may represent a lung nodule/malignancy. Other etiologies such as pulmonary contusion or round pneumonia cannot be excluded. Chest CT may be performed for further assessment. Pleural spaces: There are no pleural effusions or pneumothorax. Heart/Mediastinum: The heart size is normal. The patient is status post TAVR. There is a mildly tortuous thoracic aorta. The trachea is in the midline. Bones/joints: The patient's known right mid humeral diaphyseal fracture is not visualized on the exam. Mild to moderate bilateral shoulder degenerative changes are seen. Deformity of the left midclavicle region is seen, suggestive of old healed fracture. There is generalized osteopenia. The patient is status post lower thoracic fusion with metallic hardware. XR/XR chest 1V portable [id number] IMPRESSION: 1. Right lower lung zone round 3.7 x 3.7 cm opacity. This may represent a lung nodule/malignancy. Chest CT may be performed for further assessment. 2. Status post TAVR.
[2022-03-17] MEDS: orphenadrine 30 mg/mL Inj 2 mL 60 MG IVP (09:02)
[2022-03-17] MEDS: morphine 4 mg/mL SDV 1 mL IVP ×2 (09:02→10:52)
[2022-03-17] MEDS: tetanus-diphtheria tox (adult) 0.5 mL SDV IM (10:53)
[2022-03-17] MEDS: ondansetron 2 mg/ML SDV 2 mL 4 MG IVP (10:53)
--- NOTE | 2022-03-18 12:40 | DCPLANNER ---
Addendum entered by Vanessa Gould 03/26/22 14:19: Patient had a follow up appointment scheduled for 03.20.[address] Mcgee at ortho - patient did attend appointment. Original Note: annual giving manager had message to schedule a follow up appointment for patient with ortho. annual giving manager sent patients information to the front office staff at ortho. Patients information will be printed and reviewed. Clinic will call patient with appointment information.
== END 2022-03-17 12:07 | disposition home or self-care (01) ==
PROVIDERS: Emergency Provider Physician Assistant; PCP Internal Medicine
DX: S42.351A Displaced comminuted fracture of shaft of humerus, right arm, initial encounter for closed fracture (principal); Z79.02 Long term (current) use of antithrombotics/antiplatelets; Z79.4 Long term (current) use of insulin; E11.9 Type 2 diabetes mellitus without complications; E78.5 Hyperlipidemia, unspecified; I10 Essential (primary) hypertension; Z87.891 Personal history of nicotine dependence; W01.0XXA Fall on same level from slipping, tripping and stumbling without subsequent striking against object, initial encounter; Z23 Encounter for immunization
CPT/HCPCS: 29125; 71045; 73030; 73060; 73110; 90471; 90714; 96374; 96375; 96376; 99285; J2270; J2360; J2405; J3490

== ENCOUNTER → 2022-03-20 09:22 | Outpatient (BNVA) | payer OTHER, SELFPAY | PROVIDERS: PCP Internal Medicine; Visit Provider Specialist | DX: S42.351A Displaced comminuted fracture of shaft of humerus, right arm, initial encounter for closed fracture (principal); W19.XXXA Unspecified fall, initial encounter | CPT/HCPCS: 24530; 73060; 99204 ==

== ENCOUNTER 2022-03-20 14:58 | Outpatient (CLI) | payer OTHER, MEDICARE, SELFPAY | END 2022-03-20 14:59 | disposition home or self-care (01) | LOC: SPT 14:59 | PROVIDERS: PCP Internal Medicine; Visit Provider Specialist | DX: Z46.89 Encounter for fitting and adjustment of other specified devices (principal); S42.351D Displaced comminuted fracture of shaft of humerus, right arm, subsequent encounter for fracture with routine healing; X58.XXXD Exposure to other specified factors, subsequent encounter | CPT/HCPCS: 97760; 99204; L3980 ==